=== PATIENT | female | born 1960 | race Two or more races ===

== ENCOUNTER → 2016-11-13 | Outpatient (CLI) | payer BC, OTHER ==
[~2016-11-13] MED LIST: ISOVUE-M 300 61% 15ML VIAL (Q9967) As Ordered ONE; LIDOCAINE 1% SDV INJ 30 ML VIAL As Ordered ONE; diazePAM 5 MG TAB As Ordered ONE; methylPREDNISolone SUSP 40 MG/ML (DEPO-medrol) VIAL (J1030) As Ordered ONE; oxyCODONE 5MG TAB As Ordered ONE
--- NOTE | 2016-11-13 18:39 | REP ---
FLUOROSCOPIC GUIDANCE FOR LUMBAR EPIDURAL INJECTION: 11/13/2016: Clinical history: Low back pain. Three images from C-arm fluoroscopy provided to Dr. Moss of the pain clinic. Findings. The first image shows a needle to the right of the spinous process of L5 just below the lamina. The second image shows epidural contrast adjacent to that needle tip and the third image show the needle removed. Fluoroscopy time: 45 seconds. Signed by Sandoval Gross MD 11/14/2016 08:31 A
--- NOTE | 2016-11-17 23:21 | ECWPNPC ---
PATIENT NAME: JAYLAN JONES : 1960 GENDER: FEMALE VISIT DATE: 11/13/2016 DISCHARGE DATE: 11/13/16 1139 VISIT LOCKED DATE TIME: PHYSICIAN: SAMMI FARAH RESOURCE: SAMMI FARAH REASON FOR APPOINTMENT 1. LESI L4,5-L5S1 HISTORY OF PRESENT ILLNESS HISTORY OF PRESENT ILLNESS: PAIN THE PATIENT DESCRIBES THE PAIN... FALL RISK SCREENING: SCREENING :NO FALLS IN THE PAST YEAR CURRENT MEDICATIONS TAKING FLUOXETINE HCL 40 MG CAPSULE 1 CAPSULE IN THE MORNING ORALLY ONCE A DAY, NOTES: 11/12/16 0800 TAKING HYDROCHLOROTHIAZIDE 12.5 MG TABLET 1 TABLET ORALLY ONCE A DAY, NOTES: 11/10/16 0800 TAKING OXYCODONE-ACETAMINOPHEN 5-325 MG TABLET 1 TABLET NEEDED ORALLY EVERY 6 HRS, NOTES: 11/13/16 0700 TAKING GABAPENTIN 100 MG CAPSULE ORALLY , NOTES: 11/13/16 0500 TAKING CLARITIN 10 MG TABLET 1 TABLET ORALLY ONCE A DAY, NOTES: > 2 WEEKS TAKING VITAMIN D 1000 UNIT TABLET 1 TABLET ORALLY ONCE A DAY, NOTES: 11/11/16 0800 TAKING CALCIUM + D3 600-200 MG-UNIT TABLET ORALLY , NOTES: 11/11/16 0800 MEDICATION LIST REVIEWED AND RECONCILED WITH THE PATIENT ALLERGIES PENICILLIN (FOR ALLERGIES USE ONLY) SULFA (FOR ALLERGY USE ONLY) SOCIAL HISTORY GENERAL: TOBACCO USE ARE YOU A:NONSMOKER LEARNING BARRIERS / SPECIAL NEEDS ORIENTED TO PLAN OF CARE: PATIENT, PAIN MANAGEMENT PATIENT, ORIENTED TO PLAN OF CARE: PATIENT, PAIN MANAGEMENT PATIENT. NEW PATIENT PAIN DIARY TODAY'S VISITNOTES FROM 0-10, WHAT LEVEL IS YOUR PAIN TODAY?0 PAIN CLINIC PFS, CLERGY, PUBLIC HEALTH REFERRALS PFS REFERRAL NEEDED?NO CLERGY REFERRAL NEEDED?NO PUBLIC HEALTH REFERRAL NEEDED?NO WAS THE PROVIDER NOTIFIED OF ANY PERTINENT INFO?NO PFS REFERRAL NEEDED?NO CLERGY REFERRAL NEEDED?NO PUBLIC HEALTH REFERRAL NEEDED?NO WAS THE PROVIDER NOTIFIED OF ANY PERTINENT INFO?NO REVIEW OF SYSTEMS CONSTITUTIONAL: ANY CHANGE IN YOUR MEDICAL CONDITION? NO . CHILLS NO . FEVER NO . INFECTION: DO YOU HAVE NEW INFECTIONS? NO . DO YOU HAVE HISTORY OF MRSA? NO . MUSCULOSKELETAL: ANY NEW PATTERNS OF PAIN OR NUMBNESS? NO . GASTROENTEROLOGY: ANY NEW CHANGE IN BOWEL CONTROL? NO . GENITOURINARY: ANY NEW CHANGE IN BLADDER CONTROL? NO . IS THERE A CHANCE YOU COULD BE ? NO . HEMATOLOGY/LYMPH: DO YOU TAKE ANY BLOOD THINNERS? (FOR EXAMPLE- COUMADIN, PLAVIX, AGGRENOX, PLATEL, PRADAXA, OR XARELTO) NO . WHEN WAS YOUR LAST DOSE? DATE: TIME: . NEUROLOGY: HAVE YOU FALLEN IN THE PAST 6 MONTHS? NO . ANY NEW EXTREMITY NUMBNESS OR WEAKNESS? NO . CARDIOLOGY: DO YOU HAVE A PACEMAKER OR DEFIBRILLATOR? NO . RESPIRATORY: HAVE YOU BEEN SICK IN THE PAST WEEK? NO . FEVER NO . FLU LIKE SYMPTOMS? NO . COUGH NO . INTEGUMENTARY: DO YOU HAVE ANY RASHES OR OPEN SORES? NO . ALLERGIC/IMMUNO: ARE YOU ALLERGIC TO SHELLFISH OR IV DYE? NO . ANY NEW ALLERGIES? NO . PSYCHIATRIC: DO YOU HAVE THOUGHTS OF HURTING YOURSELF OR SOMEONE ELSE? NO . ARE YOU ABUSED, NEGLECTED, OR IN AN UNSAFE ENVIRONMENT? NO . ENDOCRINOLOGY: ARE YOU DIABETIC? NO . OTHER: DO YOU NEED ANY PRESCRIPTIONS? NO . IF YES, PLEASE LIST: ____ . ANY NEW PROBLEMS WITH YOUR MEDICATIONS? NO . WHEN DID YOU LAST EAT? ____11/12/16 1700 . WHEN DID YOU LAST DRINK? ____11/13/16 0800 . WHAT DID YOU LAST DRINK? ____WATER . NAME OF PERSON DRIVING YOU HOME? ____AMARIS DOYLETISTA . DO YOU HAVE ANY OTHER QUESTIONS OR CONCERNS NO . REVIEWED BY: PROVIDER: . VITAL SIGNS WT 259 LBS, HT 65 IN, BMI 43.10 INDEX, BP 140/77 MM HG, HR 78 /MIN, RR 16 /MIN, TEMP 97.5 F, OXYGEN SAT % 96%, NA INITIALS SC 09:10, REVIEWED BY: SALVADOR. ASSESSMENTS INTERVERTEBRAL DISC DISORDERS WITH RADICULOPATHY, LUMBOSACRAL REGION - M51.17 (PRIMARY) PROCEDURES PRE PROCEDURE DIAGNOSIS LUMBOSACRAL RADICULOPATHY, LUMBOSACRAL DISC DISORDER WITH RADICULOPATHY POST PROCEDURE DIAGNOSIS LUMBOSACRAL RADICULOPATHY , LUMBOSACRAL DISC DISORDER WITH RADICULOPATHY PROCEDURE L5-S1 EPIDURAL STEROID INJECTION UNDER FLUOROSCOPIC GUIDANCE SURGEON DR. SAMMI FARAH NURSE INFORMATICIST NONE ANESTHESIA LOCAL PRE PROCEDURE NOTE THE PATIENT HAS A HISTORY OF CHRONIC LOW BACK PAIN. I EVALUATE THE PATIENT AND REVIEWED THE CHART. I WENT OVER THE RISKS, ALTERNATIVES, AND BENEFITS ASSOCIATED WITH THIS PROCEDURE. THE PATIENT WOULD LIKE TO PROCEED AND GIVE CONSENT TO PERFORMED THE PROCEDURE. THE PATIENT DENIES UNEXPLAINABLE WEIGHT LOSS, FEVER, CHILLS, OR NEW CHANGES IN URINARY OR BOWEL CONTROL. DESCRIPTION OF PROCEDURE THE PATIENT WAS BROUGHT TO THE PROCEDURE ROOM AND PLACED IN THE PRONE POSITION. THE LUMBOSACRAL AREA WAS CLEANED WITH BETADINE SOLUTION AND DRAPED ASEPTICALLY. THE PROCEDURE WAS DONE UNDER STERILE CONDITIONS. I CHECKED LATERALITY AND THE LEVEL WHERE THE PROCEDURE WAS GOING TO BE PERFORMED WITH THE PATIENT AND THE SUPPORTING STAFF AT THE MOMENT OF THE TIME OUT IN THE PROCEDURE ROOM. UNDER FLUOROSCOPIC GUIDANCE, THE TARGET POINT WAS SELECTED AT THE INTERLAMINAR LEVEL OF L5-S1. LIDOCAINE WAS USED TO NUMB THE SKIN AND THE SUBCUTANEOUS TISSUE BELOW IT. EPIDURAL TUOHY NEEDLE, 17-GAUGE, WAS ADVANCED UNDER FLUOROSCOPIC GUIDANCE AND FOLLOWING PATIENT FEEDBACK UNTIL THE EPIDURAL SPACE WAS REACHED, 7 CM DEEP INTO THE SKIN BY THE LOSS OF RESISTANCE TECHNIQUE. ISOVUE M DYE 30%, 0.25 ML, WAS INJECTED SHOWING ADEQUATE SPREAD OF THE DYE. THEN, A SOLUTION OF 3 ML OF NORMAL SALINE WITH DEPO-MEDROL 60 MG WAS INJECTED SLOWLY FOLLOWING PATIENT FEEDBACK. THERE WAS NO EVIDENCE OF BLOOD, PARESTHESIA OR CEREBROSPINAL FLUID DURING THE PROCEDURE. THE PATIENT WAS SENT TO THE RECOVERY ROOM. THE PATIENT WAS MOVING THE EXTREMITIES AND DOING WELL. THERE WAS NO COMPLICATION DURING THE PROCEDURE. FLUOROSCOPY TIME WAS 45 SECONDS. POST PROCEDURE NOTE THE PATIENT WILL BE SEEN IN A FOLLOW UP IN THE NEXT FEW WEEKS. INSTRUCTIONS WERE GIVEN, QUESTIONS WERE ANSWERED, AND THE PATIENT EXPRESSED UNDERSTANDING AND AGREES WITH THE PLAN. INSTRUCTIONS WERE GIVEN, QUESTIONS WERE ANSWERED, PATIENT REPORTS UNDERSTANDING AND AGREES WITH THE PLAN. I, JOE CASTANEDA, DOCUMENTED THE ABOVE INFORMATION ACTING A SCRIBE FOR DR. FARAH. I HAVE REVIEWED THE ABOVE DOCUMENT, WRITTEN BY JOE FUENTES AND I VERIFY THAT IT IS ACCURATE. DIAGNOSTIC IMAGING [facility] FLUORO GUIDE SPINE INJECTION (PAIN)[id number] PROCEDURE CODES 43962 LUMBAR/SACRAL W/ IMAGING 6045F RADXPS IN END [id number] PXD DISPOSITION & COMMUNICATION FOLLOW UP 3 WEEKS ELECTRONICALLY SIGNED BY SAMMI FARAH MD ON 11/17/2016 AT 09:19 PM EST DISCLAIMER : THIS IS A VISIT SUMMARY EXTRACTED FROM THE [employer] CHART. IT IS NOT A COPY OF THE [employer] PROGRESS NOTE. MTDD
== END ==
LOC: M PAIN 09:20
PROVIDERS: ATTEND Anesthesiology
DX: G89.29 Other chronic pain (principal); M51.17 Intervertebral disc disorders with radiculopathy, lumbosacral region; Z79.891 Long term (current) use of opiate analgesic; Z79.899 Other long term (current) drug therapy; Z88.0 Allergy status to penicillin; Z88.2 Allergy status to sulfonamides
CPT/HCPCS: 62323; J1030; Q9967

== ENCOUNTER → 2016-11-21 | Outpatient (CLI) | payer BC, OTHER ==
[~2016-11-21] MED LIST changes: +ALEV220T26 PO; +CALC500T51 PO; +CLAR10TA13 PO; +FLUO40CA PO; +GABA-279 PO; +HAIR1TAB5 PO; +HYDR12.55 PO; -ISOVUE-M 300 61% 15ML VIAL (Q9967) As Ordered ONE; -LIDOCAINE 1% SDV INJ 30 ML VIAL As Ordered ONE; +METH4PACK PO; +PEG1POW PO; +PERCOCET PO; +SENO8.6T10 PO; +TYLE325T5 PO; +VITA500055 PO; -diazePAM 5 MG TAB As Ordered ONE; -methylPREDNISolone SUSP 40 MG/ML (DEPO-medrol) VIAL (J1030) As Ordered ONE; -oxyCODONE 5MG TAB As Ordered ONE
--- NOTE | 2016-11-27 00:10 | ECWPNPC ---
PATIENT NAME: JAYLAN JONES : 1960 GENDER: FEMALE VISIT DATE: 11/21/2016 DISCHARGE DATE: 11/21/16 1234 VISIT LOCKED DATE TIME: PHYSICIAN: ALISHA WILL RESOURCE: ALISHA WILL REASON FOR APPOINTMENT 1. R HIP, R LEG HISTORY OF PRESENT ILLNESS GENERAL: HERE FOR POST PROCEDURE F/U.HAD LESI ON 11-13-16.REPORTS NO RELIEF AND SOME AGGREVATION IN PAIN .PAIN IS LOCATED ACROSS LOW BACK AND RADIATES INTO RIGHT LEG.FINDING IT DIFFICULT TO WALK.USING WALKER.WE CHANGED PAIN MEDICINE TO DILAUDID 4MG PERCOCET AND HYDROCODONE WERE INEFFECTIVE.DOES FEEL SOMA 350MG AT HS IS HELPFUL.FEELS DILAUDID IS EFFECTIVE AT REDUCING PAIN.DENIES SIDE EFFECTS.DENIES EPISODES OF BOWEL OR BLADDER INCONTINENCE.RATING PAIN VAS 9/10.HAS APT. TO SEE DR. CROUCH NEXT WEEK. HISTORY OF PRESENT ILLNESS: PAIN THE PATIENT DESCRIBES THE PAIN... FALL RISK SCREENING: SCREENING :NO FALLS IN THE PAST YEAR CURRENT MEDICATIONS TAKING FLUOXETINE HCL 40 MG CAPSULE 1 CAPSULE IN THE MORNING ORALLY ONCE A DAY TAKING HYDROCHLOROTHIAZIDE 12.5 MG TABLET 1 TABLET ORALLY ONCE A DAY TAKING OXYCODONE-ACETAMINOPHEN 5-325 MG TABLET 1 TABLET NEEDED ORALLY EVERY 6 HRS TAKING CLARITIN 10 MG TABLET 1 TABLET ORALLY ONCE A DAY TAKING VITAMIN D 1000 UNIT TABLET 1 TABLET ORALLY ONCE A DAY TAKING CALCIUM + D3 600-200 MG-UNIT TABLET ORALLY TAKING NORCO 10-325 MG TABLET 1 TABLET NEEDED ORALLY EVERY 6 HRS PRN MDD4 TAKING SOMA 350 MG TABLET 1 ORALLY BEFORE BEDTIME MDD1 TAKING DILAUDID 4 MG TABLET 1 ORALLY EVERY 6 HRS MDD4 TAKING GABAPENTIN 300 MG CAPSULE 1 CAPSULE ORALLY BID NOT-TAKING GABAPENTIN 300 MG CAPSULE ORALLY BID ALLERGIES PENICILLIN (FOR ALLERGIES USE ONLY) SULFA (FOR ALLERGY USE ONLY) SOCIAL HISTORY GENERAL: TOBACCO USE ARE YOU A:NONSMOKER LEARNING BARRIERS / SPECIAL NEEDS ORIENTED TO PLAN OF CARE: PATIENT, PAIN MANAGEMENT PATIENT, ORIENTED TO PLAN OF CARE: PATIENT, PAIN MANAGEMENT PATIENT. NEW PATIENT PAIN DIARY TODAY'S VISITNOTES FROM 0-10, WHAT LEVEL IS YOUR PAIN TODAY?0 PAIN CLINIC PFS, CLERGY, PUBLIC HEALTH REFERRALS PFS REFERRAL NEEDED?NO CLERGY REFERRAL NEEDED?NO PUBLIC HEALTH REFERRAL NEEDED?NO WAS THE PROVIDER NOTIFIED OF ANY PERTINENT INFO?NO PFS REFERRAL NEEDED?NO CLERGY REFERRAL NEEDED?NO PUBLIC HEALTH REFERRAL NEEDED?NO WAS THE PROVIDER NOTIFIED OF ANY PERTINENT INFO?NO REVIEW OF SYSTEMS CONSTITUTIONAL: ANY CHANGE IN YOUR MEDICAL CONDITION? NO . RECENT ILLNESS DENIES, DENIES . CHILLS NO . FEVER NO . WEIGHT LOSS DENIES, DENIES . INFECTION: DO YOU HAVE NEW INFECTIONS? NO . DO YOU HAVE HISTORY OF MRSA? NO . MUSCULOSKELETAL: ANY NEW PATTERNS OF PAIN OR NUMBNESS? NO . GASTROENTEROLOGY: ANY NEW CHANGE IN BOWEL CONTROL? NO . GENITOURINARY: ANY NEW CHANGE IN BLADDER CONTROL? NO . IS THERE A CHANCE YOU COULD BE ? NO . HEMATOLOGY/LYMPH: DO YOU TAKE ANY BLOOD THINNERS? (FOR EXAMPLE- COUMADIN, PLAVIX, AGGRENOX, PLATEL, PRADAXA, OR XARELTO) NO . WHEN WAS YOUR LAST DOSE? DATE: TIME: . NEUROLOGY: HAVE YOU FALLEN IN THE PAST 6 MONTHS? NO . ANY NEW EXTREMITY NUMBNESS OR WEAKNESS? NO . CARDIOLOGY: DO YOU HAVE A PACEMAKER OR DEFIBRILLATOR? NO . CHEST PAIN DENIES, DENIES . SHORTNESS OF BREATH DENIES, DENIES . RESPIRATORY: HAVE YOU BEEN SICK IN THE PAST WEEK? NO . FEVER NO . FLU LIKE SYMPTOMS? NO . COUGH NO, DENIES, DENIES . SHORTNESS OF BREATH DENIES, DENIES . INTEGUMENTARY: DO YOU HAVE ANY RASHES OR OPEN SORES? NO . ALLERGIC/IMMUNO: ARE YOU ALLERGIC TO SHELLFISH OR IV DYE? NO . ANY NEW ALLERGIES? NO . PSYCHIATRIC: DO YOU HAVE THOUGHTS OF HURTING YOURSELF OR SOMEONE ELSE? NO . ARE YOU ABUSED, NEGLECTED, OR IN AN UNSAFE ENVIRONMENT? NO . ENDOCRINOLOGY: ARE YOU DIABETIC? NO . OTHER: DO YOU NEED ANY PRESCRIPTIONS? NO . IF YES, PLEASE LIST: ____ . ANY NEW PROBLEMS WITH YOUR MEDICATIONS? NO . WHEN DID YOU LAST EAT? ____ . WHEN DID YOU LAST DRINK? ____ . WHAT DID YOU LAST DRINK? ____ . NAME OF PERSON DRIVING YOU HOME? ____ . DO YOU HAVE ANY OTHER QUESTIONS OR CONCERNS NO . REVIEWED BY: PROVIDER: ALISHA COOPER . VITAL SIGNS WT 263.8 LBS, HT 65 IN, BMI 43.89 INDEX, BP 140/90 MM HG, HR 74 /MIN, RR 16 /MIN, TEMP 98.3 F, OXYGEN SAT % 96%, NA INITIALS SC 11:27, REVIEWED BY: KG. EXAMINATION GENERAL EXAMINATION: LUNGS:LUNG SOUNDS ARE CLEAR. HEART:HEART RATE REGULAR. MUSCULOSKELETAL:*, MUSCLE STRENGTH TESTING 5/5 LEFT 3/5 RIGHT LOWER EXTREMITIES., PALPATION: POSITIVE FOR PAIN OVER L/S SPINE. POSITIVE FOR PAIN OVER L/S PARASPINALS R>L. DIAGNOSTIC:MRI L/S [id number].. ASSESSMENTS PROTRUDED LUMBAR DISC - M51.26 (PRIMARY) LUMBAR RADICULOPATHY, RIGHT - M54.16 CHRONIC PRESCRIPTION OPIATE USE - Z79.891 TREATMENT PROTRUDED LUMBAR DISC STOP OXYCODONE-ACETAMINOPHEN TABLET, 5-325 MG, 1 TABLET NEEDED, ORALLY, EVERY 6 HRS REFILL SOMA TABLET, 350 MG, 1, ORALLY, BEFORE BEDTIME MDD1, 10 DAY(S), 10, REFILLS 1 REFILL DILAUDID TABLET, 4 MG, 1, ORALLY, EVERY 6 HRS MDD4, 30 DAY(S), 20, REFILLS 0 REFILL GABAPENTIN CAPSULE, 300 MG, 1 CAPSULE, ORALLY, BID, 30 DAY(S), 60 CAPSULE, REFILLS 5 START CELEBREX CAPSULE, 200 MG, 1 CAPSULE, ORALLY, ONCE A DAY, 30 DAY(S), 30, REFILLS 2 NOTES: TAKE ACETAMINOPHEN 650MG 2 TAB AM AND PM. PROCEDURE CODES FA211 ESTABILISHED PATIENT [facility] CHARGE DISPOSITION & COMMUNICATION FOLLOW UP 4 WEEKS ELECTRONICALLY SIGNED BY ALLISON BROWN ON 11/26/2016 AT 05:11 PM EST DISCLAIMER : THIS IS A VISIT SUMMARY EXTRACTED FROM THE [employer] CHART. IT IS NOT A COPY OF THE [employer] PROGRESS NOTE. MTDD
== END ==
LOC: M PAIN 11:00
PROVIDERS: ATTEND Nurse Practitioner Family
DX: Z09 Encounter for follow-up examination after completed treatment for conditions other than malignant neoplasm (principal); G89.29 Other chronic pain; M51.26 Other intervertebral disc displacement, lumbar region; M51.17 Intervertebral disc disorders with radiculopathy, lumbosacral region; Z88.5 Allergy status to narcotic agent; Z88.2 Allergy status to sulfonamides; Z79.891 Long term (current) use of opiate analgesic; Z79.899 Other long term (current) drug therapy

== ENCOUNTER → 2016-12-03 | Outpatient (CLI) | payer BC, OTHER ==
--- NOTE | 2016-12-03 12:49 | REP ---
CERVICAL SPINE, TEN VIEWS: HISTORY: Spondylosis. The cervical spine is visualized from C1 to C6 in the lateral radiographs. There is no acute fracture or subluxation. The C5-6 and C6-7 intervertebral discs are decreased in height consistent with disc degeneration. There is narrowing of the C5 neural foramina secondary to uncinate process hypertrophy. IMPRESSION: Degenerative change as described above. Signed by Yemi Ordoñez MD 12/03/2016 12:49 P
== END ==
LOC: M RAD 11:16
PROVIDERS: ATTEND Neurological Surgery
DX: M47.812 Spondylosis without myelopathy or radiculopathy, cervical region (principal)

== ENCOUNTER 2016-12-13 06:08 | Inpatient (IN) | payer BC, OTHER ==
[~2016-12-13] VITALS: Ht 157.5 cm; Wt 116.6 kg
[2016-12-13] MEDS ORDERED: SOMA250T PO (06:48)
[2016-12-13] MEDS ORDERED: DILA4TAB PO (06:48)
[2016-12-13] MEDS ORDERED: KETOROLAC 30 MG/ML VIAL (J1885) IV ONE (07:30)
[2016-12-13] MEDS ORDERED: HYDROmorphone HCL 1 MG/ML SYRINGE (J1170) IV ONE (07:30)
[2016-12-13 08:01] LABS: BASO % 0.6 % (0.0-1.0); EOS # 0.1 K/mm3 (0.0-0.50); EOS % 2.4 % (0.0-3.0); LARGE UNSTAINED CELL # 0.1 K/mm3 (0.0-0.4); LARGE UNSTAINED CELL % 2.1 % (0.0-4.0); LYMPH # 1.5 K/mm3 (1.5-4.5); MEAN CORPUSCULAR HEMOGLOBIN 31.4 pg (27.0-33.0); MEAN CORPUSCULAR HGB CONC 33.4 g/dl (32.0-36.5); MEAN CORPUSCULAR VOLUME 94.1 fl (80.0-96.0); MONO # 0.3 K/mm3 (0.0-0.8); MONO % 5.7 % (0.0-5.0); NEUTROPHILS # 3.8 K/mm3 (1.8-7.7); NEUTROPHILS % 65.2 % (36.0-66.0); PLATELET COUNT, AUTOMATED 319 k/mm3 (150-450); RED CELL DISTRIBUTION WIDTH 13.2 % (11.5-14.5); WHITE BLOOD COUNT 5.8 K/mm3 (4.0-10.0)
[2016-12-13 08:12] LABS: ANION GAP 7 MEQ/L (8-16); BLOOD UREA NITROGEN 17 MG/DL (7-18); CALCIUM LEVEL 8.7 MG/DL (8.5-10.1); CARBON DIOXIDE LEVEL 28 MEQ/L (21-32); CHLORIDE LEVEL 104 MEQ/L (98-107); CREATININE FOR GFR 0.66 MG/DL (0.55-1.02); GLOMERULAR FILTRATION RATE > 60.0 (>51); GLUCOSE, FASTING 99 MG/DL (70-105); SODIUM LEVEL 139 MEQ/L (136-145)
[2016-12-13] MEDS: VITAMIN D 1,000 INTERNATIONAL UNITS TABLET PO SCH (09:00)
[2016-12-13] MEDS: GABAPENTIN 300 MG CAP PO SCH ×2 (09:00→20:54)
[2016-12-13] MEDS: HEPARIN SOD (PORCINE) 5000 UNITS/ML VIAL SQ SCH ×2 (09:00→20:53)
[2016-12-13] MEDS: SENOKOT S TAB PO SCH ×2 (09:00→20:54)
[2016-12-13] MEDS: hydroCHLOROthiazide 12.5 MG CAPSULE PO SCH ×2 (09:00→14:17)
[2016-12-13] MEDS: OCUVITE 1 TAB PO SCH (09:00)
[2016-12-13] MEDS: FLUoxetine 20 MG CAP PO SCH (09:00)
[2016-12-13 09:28] LABS: ERYTHROCYTE SEDIMENTATION RATE 22 mm/hr (0-30)
[2016-12-13] MEDS ORDERED: NEUR300C PO (11:31)
[2016-12-13] MEDS ORDERED: ACET650T2 PO (11:31)
[2016-12-13] MEDS ORDERED: CELE1CAP9 PO (11:31)
--- NOTE | 2016-12-13 12:55 | REP ---
MRI LUMBAR SPINE WITHOUT CONTRAST: 12/13/2016 COMPARISON: X-ray, CT and MR lumbar spine 11/09/2016. CLINICAL HISTORY: Back pain with radiation into right lower extremity. TECHNIQUE: Sagittal T1, T2 and STIR images with axial T1 and T2 sequences provided. The normal lordosis of the lumbar spine is maintained. Vertebral body heights and marrow signal are normal except for discogenic endplate changes most significant at the L2-L3. The disc levels from L1-2 through L4-5 show loss of height while maintaining disc height and water signal normally only at the L5-S1 level. No compression deformity or destructive lesions. There is a T11 hemangioma noted unchanged. The T11-12 and T12-L1 disc levels maintain height and water signal. The conus terminates at T12-L1. No central canal stenosis or foraminal encroachment at the T11-12 and T12-L1 levels. At L1-2, there is no significant disc bulge or herniation. No foraminal encroachment. At L2-L3, there is a broad-based disc bulge. In addition some increased epidural fat is noted as on previous study. This bulging minimally flattens ventral thecal sac but does not cause significant stenosis. Foramina are adequate with no L2 nerve root compression. At L3-L4, minimal disc bulge flattening ventral thecal sac. Epidural lipomatosis suggested. Hypertrophic facet changes are noted. The cross-sectional area of the canal is adequate. The foramina are ample with no L3 nerve root compression. At L4-5, there is a broad-based disc bulge. There is grade 1 anterolisthesis by about 5 to 6 mm grossly unchanged. Disc space is narrowed. The disc bulge flattens the ventral thecal sac. A right foraminal disc extrusion is seen as on previous studies. Hypertrophy of the ligamentum flavum and posterior facets noted with combined factors contributing to degree of moderate central canal stenosis. There is a fluid in the facet joints as on the previous study. The disc bulge with right extrusion, facet arthropathy and anterolisthesis combine to cause foraminal encroachment and some compression of bilateral L4 roots. All of this unchanged. At L5-S1, I see no disc bulge or herniation and no spinal or foraminal stenosis. Increased epidural fat is noted at this level. This may be contributing to mild compression of the thecal sac but no significant stenosis. This is all unchanged. Foramina intact. IMPRESSION: 1. Central canal stenosis, mild to moderate L4-5 secondary to disc bulge, ligamentous and facet hypertrophy, grade 1 spondylolisthesis. This causes nerve root compression bilaterally for the L4 roots. The small intraforaminal disc extrusion on the right side is again seen but not as well depicted due to technical factors. 2. Epidural lipomatosis at L2-3, L3-4 and L5-S1. It causes some mild thecal sac compression without significant stenosis. Foramina at these other levels are unremarkable. The discogenic endplate changes at L2-3 are unchanged. Stable exam. Signed by Sandoval Gross MD 12/13/2016 04:15 P
[2016-12-13] MEDS ORDERED: ONDANSETRON 4MG/2ML VIAL (J2405) IV PRN (13:30)
[2016-12-13] MEDS ORDERED: HYDROmorphone 2 MG TAB As Ordered ONE (13:59)
[2016-12-13] MEDS: HYDROmorphone (DILAUDID) 4 MG TAB PO PRN ×2 (14:04→20:54)
[2016-12-13 16:00] VITALS: BP 136/73
--- NOTE | 2016-12-13 16:27 | HPE ---
DATE OF ADMISSION: 12/13/2016 PRIMARY CARE PROVIDER: Bety Lopez, ELECTROMECHANICAL TECHNOLOGIST at Dr. Hsu's office. PAIN MANAGEMENT: Dr. Alicea NEUROSURGERY: Dr. Fernandes CHIEF COMPLAINT: Lower back pain and right lower extremity pain and weakness, unable to ambulate. HISTORY OF PRESENT ILLNESS: This is a 56-year-old female patient who lives alone at home with underlying medical history of hypertension, lumbosacral spondylosis following with Dr. Fernandes, chronic lower back pain radiating down right lower extremity, has been following with Dr. Fernandes. As per patient, since September 2016, patient's symptoms have been getting progressively worse, to the extent that she was having difficulty walking and unable to take care of herself. Patient lives alone. Her recently . Patient denies any recent trauma injury but today because she cannot get up and take care of herself, she subsequently called emergency medical services (EMS) who brought her to the hospital. The patient denies any fevers or chills. Denies any recent injury. She is morbidly obese. She has received cortisone injection in the past with no improvement and has been in the process of following with Dr. Pedersen for nerve conduction study later today and also Dr. Segovia for cardiology to optimize her for possible surgery. The patient presented to the emergency department (ED) with worsening pain, radiating down her right thigh with worsening numbness and tingling sensation. No bowel or urinary incontinence or symptoms. No nausea or vomiting. As per patient, numbness is predominantly on her lower extremity. No involvement of groin or peritoneal area. Numbness has been chronic. Pain medication was given in the ED and Dr. Fernandes was contacted by Dr. Covington. MRI was also done with no change from previous. As per Dr. Fernandes, there is no emergent need for surgery, recommend pain management followup, but surgery was offered to the patient but there is considerable risk with uncertain outcome or improvement. The patient denies any chest pain, pressure or discomfort. Denies any shortness of breath, fevers, or chills. ALLERGIES: Reported allergies to PENICILLIN, SULFA ANTIBIOTICS, and TETRACYCLINE. PAST MEDICAL HISTORY: 1. History of intractable back pain. 2. Hypertension. 3. Morbid obesity. 4. Lumbosacral spondylosis. 5. Bulging disc. PAST SURGICAL HISTORY: (C) section times two. FAMILY HISTORY: Noncontributory. SOCIAL HISTORY: Patient last drank alcohol on and rarely drinks alcoholic beverages. She does not smoke cigarettes or use illicit drugs. She lives at home. REVIEW OF SYSTEMS: 11-point review of systems is negative except for those mentioned in the history of present illness (HPI). HOME MEDICATIONS: - acetaminophen 650 mg by mouth every eight hours as needed - calcium with vitamin D two tablets by mouth daily - Soma by mouth at bedtime as needed - Celebrex 200 mg by mouth daily - vitamin D 10,000 units by mouth daily - Claritin one tablet by mouth daily as needed - fluoxetine 40 mg by mouth daily - gabapentin 300 mg by mouth twice a day - hydrochlorothiazide 12.5 mg by mouth daily - Dilaudid 4 mg by mouth every six hours as needed PHYSICAL EXAMINATION: VITAL SIGNS: Temperature 98, pulse 70, respirations 16, blood pressure 117/76, pulse oximetry 96% on room air. GENERAL: Patient alert and oriented times three, in no acute distress, morbidly obese. HEENT: Normocephalic, atraumatic. PULMONARY: Bilaterally clear to auscultation. CARDIAC: Distant heart sounds, regular, S1, S2. ABDOMEN: Soft, nontender. Positive bowel sounds. BACK: Symmetrical lower talkback host mildly to palpation. EXTREMITIES: Strength bilateral lower extremity equal and symmetrical. Sensation bilateral lower extremity intact. Patellar reflex bilaterally intact. LABORATORY DATA: WBC 5.8, hemoglobin and hematocrit 13.6/40.8, platelets 319. Chemistry: Sodium 139, potassium 4, chloride 104, bicarbonate 28, BUN 17, creatinine 0.66, C-reactive protein 0.39. MRI shows central canal stenosis moderate L5-6 secondary to bulging disc, ligamentous and facet hypertrophy, grade 1 spondylolisthesis. This causes nerve root compression bilaterally for the L4 roots and small intraforaminal disc protrusion on the right side is again seen but not as well depicted due to technical factors. Epidural lipomatosis at L2-3, L3-4, L5-S1 causes mild thecal sac compression without significant stenosis, foramina at these other levels are unremarkable. Endplate changes at L2-3 are present and unchanged. Stable examination. ASSESSMENT AND PLAN: This is a 56-year-old female patient with underlying medical history of morbid obesity, hypertension, depression, who presented with worsening lower back pain and right lower extremity weakness, unable to ambulate. 1. Worsening lower back pain and right lower extremity weakness, possibly secondary to central canal stenosis. MRI does not show any change. Case was discussed with Dr. Fernandes. Neurosurgery has been consulted. Pain management was also consulted. Pain regimen was prescribed. We will seek pain management's assistance for possible cortisone injection. As per Dr. Fernandes, neurologic checks, followup the patient for bladder volumes, physical therapy, bowel regimen as ordered. 2. Hypertension. Continue home medication. Monitor blood pressure. 3. Depression. Continue home medication. 4. Deep vein thrombosis (DVT) prophylaxis. Heparin subcutaneous. DISPOSITION PLANNING: Pending physical therapy, clinical improvement, consultation from pain management and neurosurgery.
[2016-12-13] MEDS: ACETAMINOPHEN 650MG ER TAB (TYLENOL ARTHRITIS) PO PRN (17:38)
[2016-12-13 22:00] VITALS: BP 152/83
[2016-12-14] MEDS: HYDROmorphone (DILAUDID) 4 MG TAB PO PRN ×4 (00:29→21:48)
[2016-12-14] MEDS ORDERED: CARISOPRODOL 350 MG TAB PO ONE (01:42)
[2016-12-14] MEDS: ACETAMINOPHEN 650MG ER TAB (TYLENOL ARTHRITIS) PO PRN ×3 (04:30→19:38)
[2016-12-14 06:00] VITALS: BP 126/71
[2016-12-14 07:17] LABS: MEAN CORPUSCULAR HEMOGLOBIN 31.3 pg (27.0-33.0); MEAN CORPUSCULAR VOLUME 94.7 fl (80.0-96.0); RED CELL DISTRIBUTION WIDTH 13.1 % (11.5-14.5); WHITE BLOOD COUNT 5.4 K/mm3 (4.0-10.0)
[2016-12-14 07:36] LABS: ANION GAP 9 MEQ/L (8-16); BLOOD UREA NITROGEN 13 MG/DL (7-18); CALCIUM LEVEL 8.6 MG/DL (8.5-10.1); CARBON DIOXIDE LEVEL 25 MEQ/L (21-32); CHLORIDE LEVEL 106 MEQ/L (98-107); CREATININE FOR GFR 0.58 MG/DL (0.55-1.02); GLOMERULAR FILTRATION RATE > 60.0 (>51); GLUCOSE, FASTING 93 MG/DL (70-105); MAGNESIUM LEVEL 2.4 MG/DL (1.8-2.4); POTASSIUM SERUM 4.1 MEQ/L (3.5-5.1); SODIUM LEVEL 140 MEQ/L (136-145)
[2016-12-14] MEDS: HEPARIN SOD (PORCINE) 5000 UNITS/ML VIAL SQ SCH ×2 (09:14→19:39)
[2016-12-14] MEDS: FLUoxetine 20 MG CAP PO SCH (09:15)
[2016-12-14] MEDS: OCUVITE 1 TAB PO SCH (09:15)
[2016-12-14] MEDS: VITAMIN D 1,000 INTERNATIONAL UNITS TABLET PO SCH (09:15)
[2016-12-14] MEDS: hydroCHLOROthiazide 12.5 MG CAPSULE PO SCH (09:16)
[2016-12-14] MEDS: SENOKOT S TAB PO SCH ×2 (09:16→19:38)
[2016-12-14] MEDS: GABAPENTIN 300 MG CAP PO SCH ×2 (09:16→19:38)
--- NOTE | 2016-12-14 15:33 | IPN ---
DATE: 12/14/2016 Patient seen and examined. No acute events overnight. Denies any fevers, chills, chest pain, pressure, or discomfort. Continues to report back pain radiating down right lower extremity. VITAL SIGNS: Temperature 98, pulse 70, respirations 14, blood pressure 126/71, pulse oximetry 99% on room air. LABORATORY DATA: WBC 5.4, hemoglobin and hematocrit 12.6/38.1, platelets 284. Chemistry: Sodium 140, potassium 4.1, chloride 106, bicarbonate 25, BUN 13, creatinine 0.58. PHYSICAL EXAMINATION: GENERAL: Patient alert and oriented times three, morbidly obese in no acute distress. HEENT: Normocephalic, atraumatic. PULMONARY: Bilaterally clear to auscultation. CARDIAC: Distant heart sounds, regular, S1, S2. ABDOMEN: Soft, nontender, nondistended. Positive bowel sounds. BACK: Symmetrical bilateral lower back pain. Mildly tender to palpation. EXTREMITIES: Strength bilateral lower extremities equal and symmetrical. Sensation in bilateral lower extremities intact. Patellar reflex bilaterally symmetrical. ASSESSMENT AND PLAN: This is a 56-year-old female patient with underlying medical history of morbid obesity, hypertension, depression, who presented with worsening lower back pain and right lower extremity weakness, unable to ambulate. 1. Worsening lower back pain with right lower extremity weakness, possibly secondary to central canal stenosis. MRI shows no significant change. Case discussed with Dr. Fernandes, neurosurgery. Has been consulted. Pain management has also been consulted. Pain regimen as per pain management. Will recommend cortisone injection, but stated that has not worked for her last time. Case discussed with Dr. Fernandes. Significant risk to surgical options. Success rate is one out of three with significant risks, including infection, worsening pain, bleeding, nerve damage, paralysis, but patient still wanted to go forward with surgery, given that she stated that her quality of life is terrible in this state, and even one out of three chance is good enough for her. Cardiology, Dr. Segovia, has been consulted for cardiac optimization. Patient's baseline metabolic equivalents (METS) greater than 4. Prior to the back pain onset more than 3 or 4 months ago, patient was able to ambulate 2 miles and has no cardiac history and risk factors other than the obesity. Patient has been optimized from cardiac perspective as per Dr. Segovia. EKG is appreciated. Neurologic checks, bladder volume, bladder scans, physical therapy, bowel regimen as ordered. 2. Hypertension. Continue home medication. 3. Depression. Continue home medications. 4. Deep vein thrombosis (DVT) prophylaxis. Heparin subcutaneous. DISPOSITION PLANNING: Pending physical therapy, clinical improvement, pain management. Possible surgery on Saturday if patient does not improve.
--- NOTE | 2016-12-14 18:34 | ECGEPIP ---
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
--- NOTE | 2016-12-14 18:35 | CR.PDOC ---
[facility] Consultation General Date of Consultation: 12/14/16 Consultation Report For: TEJAL CHAHAL MD Chief Complaint The patient is a 56-year-old female admitted with a reason for visit of Intractable Low Back Pain. Pain management is asked to see the patient for further evaluation of her pain. She is a current patient of our practice. History of Present Illness Linh Garcia is a 56-year-old female who is usually followed by ALLISON Worthington , and Dr. Severiano Alicea. She had been experiencing pain in the low back with radiation into the right leg. She was brought in for interventional treatment and did undergo a lumbar epidural steroid injection on 11/13/2016. She returned to the clinic on 11/17/2016 due to marked increase in pain in the right leg low back. She did not have any relief following the injection. Today she tells me that it feels as though the injection was in the right area, but the area became extremely agitated. At the time of her visit. She was started on hydromorphone 4 mg every 6 hours as needed and continued on gabapentin. She did come to the emergency room on 12/13/2016 with increased difficulty with walking as well as pain in the low back with radiation to the right leg. In the emergency room she was given IV hydromorphone, which did provide her with some relief. Since since being admitted to the floor. She has received oral hydromorphone, which she has not felt as effective area. She is noting that the hydromorphone plus extra strength Tylenol does seem to be helpful. Today she was seen by Dr. Fernandes and surgical intervention is planned for Saturday. 2016. Home Medications Scheduled (Hair Skin and Nails Formu) 1 Tab Tab 1 TAB PO DAILY (Reported) (Celecoxib) 200 Mg Cap 200 MG PO DAILY (Reported) Calcium/Vitamin D (Calcium 500+D 500-200 mg-Unit) 1 Tab Tab 2 TAB PO DAILY ( Reported) Cholecalciferol (Vitamin D3) 5,000 Unit Tab 10,000 UNIT PO DAILY (Reported) Fluoxetine Hcl (Fluoxetine HCl) 40 Mg Cap 40 MG PO DAILY (Reported) Gabapentin (Neurontin) 300 Mg Cap 300 MG PO BID (Reported) Hydrochlorothiazide (Hydrochlorothiazide) 12.5 Mg Tab 12.5 MG PO DAILY ( Reported) Scheduled PRN (Claritin-D 24 Hour 10-240 mg) 1 Tab Tab 1 TAB PO DAILY PRN PRN ALLEGIES ( Reported) Acetaminophen (Acetaminophen ER) 650 Mg Tab 650 MG PO Q8H PRN PRN PAIN (Reported ) Carisoprodol (Soma) 250 Mg Tab 250 MG PO QHS PRN PRN BACK PAIN (Reported) Hydromorphone HCl (Dilaudid) 4 Mg Tab 4 MG PO Q6H PRN PRN BACK PAIN (Reported) Allergies Coded Allergies: Penicillins (Unverified Allergy, Intermediate, HIVES, 12/03/16) Sulfa Antibiotics (Unverified Allergy, Intermediate, HIVES, 12/03/16) Tetracycline (Unverified Allergy, Intermediate, HIVES, 12/03/16) Past Medical History Medical History Past medical history includes hypertension and obesity Surgical History Denies use of tobacco, alcohol or illicit substances. She is a . She works full-time at [employer] for over 30 years. She has been unable to work recently due to her back pain Family History Family History Noncontributory Social History Social History Denies tobacco, alcohol, or illicit substance abuse. Review of Systems Subjective Constitutional: Reports: fatigue, nausea with pain, Denies: unexplained weight loss HEENT: Denies: head aches, hearing problems, vision problems Skin: Denies: breakdown, lesions, rash Pulmonary: Denies: cough, dyspnea Cardiovascular: Denies: chest pain, edema, palpitations Gastrointestinal: Reports: constipation, Denies: loss of bowel control Genitourinary: Denies: dysuria, hematuria, loss of bladder control Hematologic: Denies: blood dyscrasias, easy bleeding, easy bruising Endocrine: Denies: Diabetes mellitus Musculoskeletal: Reports: leg pain (right side), muscle stiffness, spasms Neurological: Reports: other (numbness, burning and tingling along the lateral right leg and across the foot.) Psych: Reports: mood normal, Denies: thoughts of harming other, thoughts of self harm Physical Examination Physical Examination Vital Signs/I&O Vital Signs Date Time Temp Pulse Resp B/P Pulse Ox O2 Delivery O2 Flow Rate FiO2 12/14/16 16:14 16 12/14/16 09:21 Room Air 12/14/16 06:00 98.0 70 126/71 99 I&O- Last 24 Hours up to 6 AM 12/14/16 06:00 Intake Total 180 ml Output Total 1600 ml Balance -1420 ml General Exam: Positive: alert, attentive, moderate distress, oriented times three, talkative ENT EXAM: Positive: normocephalic Neck Exam: Positive: Carotid bruit (none), Negative: Lymphadenopathy, Thyromegaly Chest Exam: Positive: Clear to auscultation, Negative: Rales, Wheezing Heart Exam: Positive: Normal S1, S2, Regular rate and rhythm, Negative: Murmurs, Rubs Abdominal Exam: Positive: Nondistended, Normal bowel sounds, Soft Extremity Exam: Negative: Edema Skin Exam: Positive: Dry, Warm, Negative: Lesions, Rashes Neuro Exam: Positive: Gait is antalgic, Muscle Strength U/L Ext. (4+ over 5, right lower extremity distally and proximally, 5 over 5 distally and proximally in the left lower extremity. Some weakness is noted with foot flexion right side.), Normal Tone Inspection of spine Point tenderness noted over lumbar spinous processes and particularly over the right sacrum and right sacroiliac joint. Tenderness is also elicited with palpation over the right. Formless. Is unable to sit in a full upright position. Posture is held stiffly. Able to flex to 20-30 only. Currently, Walker is being used for balance and support. Diagnostic and Imaging Studies MRI of lumbar spine was completed on 12/13/2016. These were compared to her x- rays, CT and MRI of the lumbar spine completed on 11/09/2016. This did demonstrate central canal stenosis, mild to moderate at L4-5 secondary to disc bulge ligamentous and facet hypertrophy and grade 1 spondylolisthesis. This causes nerve root compression bilaterally for the L4 roots. There is a small intraforaminal disc extrusion on the right side again seen, but not as well depicted due to technical factors. This is unchanged since her previous imaging. There is epidural lipomatosis at L2-3, L3-4 and L5-S1. It causes some mild thecal sac compression, but without significant stenosis. The foramina at these other levels are felt to be unremarkable. The discogenic endplate changes at L2-3. We are unchanged. Assessment 1. Lumbar disc displacement without myelopathy. 2. Lumbar radiculopathy. 3. Lumbar facet arthropathy Recommendation and Plan At this time. Patient is tentatively scheduled for a decompressive laminectomy with Dr. Fernandes on 12/17/2016. There had been some thought given to moving ahead with a epidural injection. Dr. Alicea was out of the office this week, and Saturday. Patient does not feel that the epidural that she had one month ago was of any benefit and she is anxious to move forward with a surgical intervention. I did recommend that she follow Dr. Fernandes's instructions as far as ambulation. Would recommend that she continue with the same medications although I will reevaluate her gabapentin and add a laxative. Thank you , for allowing us to participate in the care of your patient, Linh Garcia. We will look to see her back in the office following her surgical intervention should there be a need. Should you have any questions we'll be glad to discuss this with you at any time please contact us here at the pain center at [phone]. Maura Bronson TORCH CUTTER Dec 14, 2016 18:35
[2016-12-14] MEDS: CARISOPRODOL 350 MG TAB PO SCH (19:38)
--- NOTE | 2016-12-14 20:18 | CR ---
DATE OF CONSULTATION: 12/14/2016 REFERRING PHYSICIAN: Dr. Dutton and Dr. Fernandes INDICATION: Preoperative clearance. HISTORY OF PRESENT ILLNESS: Mrs. Dos Santos is previously unknown to me. She is a very pleasant 56-year-old female who was admitted to the hospital on 12/13/2016 with intractable low back pain. Apparently there is a suspicion for spinal stenosis with some compressive symptoms and consideration for neurosurgical intervention. I was asked to provide cardiology clearance. The patient does not have any cardiac history. She tells me that she was quite active until September of this year. 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 She tells me that every day she walks many miles and generally does not have any trouble doing so (with the exception of recent low back pain). She denies any history of chest pain or shortness of breath. She has had chronic lower extremity dependent edema on the days when she works because she would be of her feet for 8 hours with virtually no sitting in between. The symptoms would always resolve by the morning. She denies any history of smoking. Even though the diagnosis of hypertension is listed, she tells me she never actually had high blood pressure and she takes the diuretics to help her lower extremity edema. She does not know her lipid panel, but to the best of her understanding, it was never known to be high. PAST MEDICAL HISTORY: 1. Low back pain. 2. Obesity, morbid. 3. Lumbosacral spondylosis. 4. Questionable history of hypertension. 5. Chronic venous insufficiency with lower extremity edema. SURGICAL HISTORY: section times two. FAMILY HISTORY: Her father of coronary artery disease, but he was a heavy smoker. SOCIAL HISTORY: The patient is a . Her of massive coronary artery disease a few months ago. She does not drink. She does not smoke and never did. ALLERGIES: PENICILLIN, SULFA and TETRACYCLINE. OUTPATIENT MEDICATIONS: - Tylenol as needed - calcium with vitamin D - Soma as needed - Celebrex 200 mg a day - vitamin D 10,000 units a day - Claritin - fluoxetine 40 mg a day - gabapentin 300 mg twice a day - HCTZ 12.5 mg a day - Dilaudid as needed every 6 hours PHYSICAL EXAMINATION: Mrs. Garcia is a pleasant middle-aged female who appears to be in mild distress when moving but comfortable when she lays still. Blood pressure 126/71, heart rate 70s. She is afebrile. Saturation 99% on room air. She is obese. Her weight was documented at 116 kg. Jugular venous pressure (JVP) is not elevated. No goiter. No cervical lymphadenopathy. No carotid bruit. Lungs are clear to auscultation. Heart exam reveals nondisplaced precordial impulse. Heart sounds are somewhat muffled but nevertheless, I do not appreciate any gallop, rub or murmur. Abdomen is is obese but soft, nontender. No guarding. No peripheral edema. Peripheral pulses are good quality. Neurologically, she freely moves all four extremities. I did not formally test her gait or deep tendon reflexes. LABORATORY: She has normal CBC and normal basic metabolic panel. ECG reveals sinus rhythm with poor R-wave progression and nonspecific ST-T abnormalities. ASSESSMENT AND PLAN: Mrs. Garcia is a 56-year-old female who presented with intractable low back pain and apparently lower back surgery is considered for Saturday. She does not have congestive heart failure and does not have established coronary artery disease. She does not have any anginal symptoms and was quite active until September of this year with reported good exertional tolerance. Her risk factors for coronary artery disease are positive for family history, obesity and possibly lipids (her lipid panel is unknown). I do not see any high-risk indicator to preclude surgery. I believe that her cardiac risk is actually pretty low. The principal risk is the risk of deep vein thrombosis (DVT). I think that currently she should be on DVT prophylaxis with Lovenox or heparin and it should be discontinued just before the surgery with non-pharmacologic DVT prophylactic measures to be applied afterwards. I do not believe that any further cardiac testing or precautions are necessary. CHARLEEN
[2016-12-14 22:00] VITALS: BP 135/64
[2016-12-15] MEDS: ACETAMINOPHEN 650MG ER TAB (TYLENOL ARTHRITIS) PO PRN ×2 (05:17→17:32)
[2016-12-15] MEDS: HYDROmorphone (DILAUDID) 4 MG TAB PO PRN ×3 (05:18→20:11)
[2016-12-15 06:00] VITALS: BP 113/72
[2016-12-15 06:55] LABS: MEAN CORPUSCULAR HEMOGLOBIN 31.3 pg (27.0-33.0); MEAN CORPUSCULAR HGB CONC 33.1 g/dl (32.0-36.5); MEAN CORPUSCULAR VOLUME 94.7 fl (80.0-96.0); RED CELL DISTRIBUTION WIDTH 13.1 % (11.5-14.5)
[2016-12-15 07:12] LABS: ANION GAP 8 MEQ/L (8-16); BLOOD UREA NITROGEN 13 MG/DL (7-18); CALCIUM LEVEL 8.5 MG/DL (8.5-10.1); CARBON DIOXIDE LEVEL 29 MEQ/L (21-32); CHLORIDE LEVEL 104 MEQ/L (98-107); CREATININE FOR GFR 0.69 MG/DL (0.55-1.02); GLOMERULAR FILTRATION RATE > 60.0 (>51); GLUCOSE, FASTING 101 MG/DL (70-105); MAGNESIUM LEVEL 2.3 MG/DL (1.8-2.4); POTASSIUM SERUM 3.8 MEQ/L (3.5-5.1); SODIUM LEVEL 141 MEQ/L (136-145)
[2016-12-15] MEDS: OCUVITE 1 TAB PO SCH (07:56)
[2016-12-15] MEDS: HEPARIN SOD (PORCINE) 5000 UNITS/ML VIAL SQ SCH ×2 (07:56→21:55)
[2016-12-15] MEDS: GABAPENTIN 300 MG CAP PO SCH ×3 (07:57→21:54)
[2016-12-15] MEDS: FLUoxetine 20 MG CAP PO SCH (07:57)
[2016-12-15] MEDS: VITAMIN D 1,000 INTERNATIONAL UNITS TABLET PO SCH (07:58)
[2016-12-15] MEDS: SENOKOT S TAB PO SCH ×2 (07:58→21:54)
[2016-12-15] MEDS: MIRALAX *UNIT DOSE* 17GM PACKET PO SCH (09:00)
--- NOTE | 2016-12-15 13:44 | IPN ---
DATE: 12/15/2016 Patient seen and examined. No acute events overnight. Denies any fevers, chills, chest pain, pressure, or discomfort. Reported back pain to be slightly improved. VITAL SIGNS: Temperature 98.3, pulse 72, respirations 20, blood pressure 113/72, pulse oximetry 98% on room air. LABORATORY DATA: WBC 7, hemoglobin and hematocrit (H and H) 12.9/39.1, platelets 320. Chemistry: Sodium 141, potassium 3.8, chloride 104, bicarbonate 29, BUN 13, creatinine 0.69. PHYSICAL EXAMINATION: GENERAL: Patient morbidly obese, in no acute distress. HEENT: Normocephalic, atraumatic. PULMONARY: Bilaterally clear to auscultation. CARDIAC: Distant heart sounds. Regular rate and rhythm, normal S1, S2. ABDOMEN: Soft, nontender, nondistended. Positive bowel sounds. BACK: Symmetrical bilateral lower back pain. Mildly tender to palpation. EXTREMITIES: Strength bilateral lower extremities intact, equal and symmetrical. Sensation to bilateral lower extremities intact. Patellar reflex bilaterally symmetrical. ASSESSMENT AND PLAN: This is a 56-year-old female patient with underlying medical history of morbid obesity, hypertension and depression who presented with worsening lower back pain, right lower extremity weakness, unable to ambulate. 1. Worsening lower back pain with right lower extremity weakness, possibly secondary to central canal stenosis. MRI shows no significant change. The case discussed with Dr. Fernandes, neurosurgery who has been consulted. Pain management has been consulted. Patient had epidural injection previously. Did not tolerate it and did not improve. Subsequently the only alternative was surgical. Dr. Fernandes has discussed the risks and benefits of surgery with the patient, including bleeding, nerve damage, paralysis, infection, and as per Dr. Fernandes the success rate of the surgery of good outcome is 1 out of 3. Despite the above information, the patient still wanted to go forward with the surgery. She is aware of the risks and the benefits of the surgery, stating that her quality of life right now is terrible and she wants to take any chance possible to get better. Cardiology, Dr. Segovia, has been consulted and the patient has been optimized from a cardiac perspective. Baseline metabolic equivalents (METS) greater than 4 prior to pain. Bowel regimen is prescribed. Pain medications prescribed. Bladder volume, bladder scan and neurologic checks. Continue to follow. 2. Hypertension. Continue home medications. 3. Depression. Continue home medications. 4. Deep vein thrombosis (DVT) prophylaxis. Heparin subcutaneous. DISPOSITION PLANNING: Pending physical therapy, clinical improvement. Possible surgery on Saturday if patient does not improve.
[2016-12-15 14:00] VITALS: BP 132/71
[2016-12-15] MEDS: **NOTE PATIENT COMMENT** MISC XX SCH ×2 (16:00→21:00)
[2016-12-15] MEDS: CARISOPRODOL 350 MG TAB PO SCH (21:54)
[2016-12-15 22:00] VITALS: BP 132/78
[2016-12-16] MEDS: HYDROmorphone (DILAUDID) 4 MG TAB PO PRN ×3 (05:17→20:49)
[2016-12-16] MEDS: ACETAMINOPHEN 650MG ER TAB (TYLENOL ARTHRITIS) PO PRN ×2 (05:51→17:10)
[2016-12-16 06:00] VITALS: BP 167/81
[2016-12-16 06:34] LABS: MEAN CORPUSCULAR HEMOGLOBIN 31.7 pg (27.0-33.0); MEAN CORPUSCULAR HGB CONC 33.1 g/dl (32.0-36.5); MEAN CORPUSCULAR VOLUME 95.9 fl (80.0-96.0); RED CELL DISTRIBUTION WIDTH 13.3 % (11.5-14.5); WHITE BLOOD COUNT 5.8 K/mm3 (4.0-10.0)
[2016-12-16 06:41] LABS: ANION GAP 7 MEQ/L (8-16); BLOOD UREA NITROGEN 11 MG/DL (7-18); CALCIUM LEVEL 8.7 MG/DL (8.5-10.1); CARBON DIOXIDE LEVEL 28 MEQ/L (21-32); CHLORIDE LEVEL 105 MEQ/L (98-107); CREATININE FOR GFR 0.68 MG/DL (0.55-1.02); GLOMERULAR FILTRATION RATE > 60.0 (>51); GLUCOSE, FASTING 104 MG/DL (70-105); MAGNESIUM LEVEL 2.3 MG/DL (1.8-2.4); POTASSIUM SERUM 3.7 MEQ/L (3.5-5.1); SODIUM LEVEL 140 MEQ/L (136-145)
[2016-12-16] MEDS: HEPARIN SOD (PORCINE) 5000 UNITS/ML VIAL SQ SCH ×3 (08:44→20:55)
[2016-12-16] MEDS: MIRALAX *UNIT DOSE* 17GM PACKET PO SCH (08:45)
[2016-12-16] MEDS: hydroCHLOROthiazide 12.5 MG CAPSULE PO SCH (08:45)
[2016-12-16] MEDS: VITAMIN D 1,000 INTERNATIONAL UNITS TABLET PO SCH (08:45)
[2016-12-16] MEDS: FLUoxetine 20 MG CAP PO SCH (08:45)
[2016-12-16] MEDS: GABAPENTIN 300 MG CAP PO SCH ×3 (08:45→20:49)
[2016-12-16] MEDS: OCUVITE 1 TAB PO SCH (08:45)
[2016-12-16] MEDS: SENOKOT S TAB PO SCH ×2 (08:46→20:49)
[2016-12-16] MEDS: **NOTE PATIENT COMMENT** MISC XX SCH ×3 (08:46→20:49)
--- NOTE | 2016-12-16 10:01 | IPN ---
DATE: 12/16/2016 Patient seen and examined. No acute events overnight. Reported back pain to be about the same as yesterday. Mildly improved after pain medication, about 3 out of 10 at this point. Denies any chest pain, pressure, or discomfort, fevers or chills. VITAL SIGNS: Temperature 98.2, pulse 74, respirations 18, blood pressure 167/81, pulse oximetry 98% on room air. LABORATORY DATA: WBC 5.8, hemoglobin and hematocrit 13.2/39.8, platelets 319. Chemistry: Sodium 140, potassium 3.7, chloride 105, bicarbonate 28, BUN 11, creatinine 0.68. PHYSICAL EXAMINATION: GENERAL: Patient morbidly obese, in no acute distress. HEENT: Normocephalic, atraumatic. PULMONARY: Bilaterally clear to auscultation. CARDIAC: Distant heart sounds. Regular rate and rhythm, normal S1 and S2. ABDOMEN: Soft, nontender, nondistended. Positive bowel sounds. BACK: Symmetrical bilateral mild low back tenderness to palpation. EXTREMITIES: Bilateral lower extremities strength intact. ASSESSMENT AND PLAN: This is a 56-year-old female patient with underlying medical history of morbid obesity, hypertension and depression who presented with worsening lower back pain, right lower extremity weakness and unable to ambulate. 1. Worsening lower back pain with right lower extremity weakness, possibly secondary to central canal stenosis. MRI shows no significant change. The case discussed with Dr. Fernandes, neurosurgery who has been consulted. Pain management has been consulted. Patient had epidural injection previously with no improvement in significant pain. Subsequently the only alternative was surgery. Dr. Fernandes has discussed the risks and benefits of surgery with the patient, including bleeding, nerve damage, paralysis, infection, and more, and the success rate of the surgery of good outcome is only 1 out of 3. Despite the above information, the patient still wanted to proceed with surgery. She stated that she was aware of the risks and the benefits of the surgery. She stated that her quality of life right now is terrible and she wants to take any chance possible to get better. Cardiology, Dr. Segovia, has been consulted. The patient was optimized for surgery from a cardiac perspective. The patient's baseline METS greater than 4 prior to the pain. Therefore, the patient is medically optimized. Bowel regimen prescribed. Pain management medication was prescribed. Bladder volume, neuro checks. Likely going for surgery on Saturday morning. 2. Hypertension. Continue home medications. 3. Depression. Continue home medications. 4. Deep vein thrombosis (DVT) prophylaxis. Heparin subcutaneous. DISPOSITION PLANNING: Physical therapy, clinical improvement. Likely going for surgery with Dr. Fernandes on Saturday.
[2016-12-16 14:00] VITALS: BP 151/90
--- NOTE | 2016-12-16 14:18 | REP ---
Chest x-ray: Two views. History: Preop. No comparison studies. Findings: There is a dextroconvex rotoscoliotic curve in the thoracic spine. The lungs are well inflated and clear. The pleural angles are sharp. Heart size is normal. There are degenerative changes as well in the thoracic spine and in the AC joints. Impression: Dextroconvex thoracic rotoscoliotic curve. Otherwise no active disease. Signed by Johnnie Lara MD 12/16/2016 05:11 P
[2016-12-16] MEDS ORDERED: KCL 20MEQ IN D5/0.2%NS 1000ML 1,000 ML IV SCH (15:00)
--- NOTE | 2016-12-16 15:04 | REP ---
Duplex extremity venous ultrasound: Bilateral lower extremities. History: Calf pain and tenderness. Immobilization. Findings: The deep veins are anechoic and fully compressible from the groin to the popliteal fossa in the right and left lower extremity. Color flow imaging is homogeneous. Spectral Doppler interrogation demonstrates intact respiratory variation in flow and normal manual augmentation of flow. There is no evidence of deep vein thrombosis. There are normal appearing lymph nodes in each groin which appear fat replaced. The largest of these on the right measures 3.4 x 1.0 x 1.3 cm. On the left the largest node measures 1.3 x 0.7 x 0.9 cm. Impression: Negative bilateral lower extremity duplex venous ultrasound. No evidence of deep vein thrombosis. Signed by Johnnie Lara MD 12/16/2016 05:11 P
[2016-12-16] MEDS: CARISOPRODOL 350 MG TAB PO SCH (20:49)
[2016-12-16 22:00] VITALS: BP 137/86
[2016-12-17] VITALS (7 sets, daily range): BP systolic 115–137; BP diastolic 64–86
[2016-12-17] MEDS ORDERED: KCL 20MEQ IN D5/0.2%NS 1000ML 1,000 ML IV SCH
[2016-12-17] MEDS: HYDROmorphone (DILAUDID) 4 MG TAB PO PRN (03:11)
[2016-12-17 06:42] LABS: BASO % 0.7 % (0.0-1.0); EOS # 0.2 K/mm3 (0.0-0.50); EOS % 3.2 % (0.0-3.0); LARGE UNSTAINED CELL # 0.1 K/mm3 (0.0-0.4); LARGE UNSTAINED CELL % 2.6 % (0.0-4.0); LYMPH # 1.6 K/mm3 (1.5-4.5); LYMPH % 30.5 % (24.0-44.0); MEAN CORPUSCULAR HEMOGLOBIN 30.9 pg (27.0-33.0); MEAN CORPUSCULAR HGB CONC 32.8 g/dl (32.0-36.5); MEAN CORPUSCULAR VOLUME 94.1 fl (80.0-96.0); MONO # 0.4 K/mm3 (0.0-0.8); MONO % 7.2 % (0.0-5.0); NEUTROPHILS # 2.9 K/mm3 (1.8-7.7); NEUTROPHILS % 55.9 % (36.0-66.0); PLATELET COUNT, AUTOMATED 298 k/mm3 (150-450); WHITE BLOOD COUNT 5.2 K/mm3 (4.0-10.0)
[2016-12-17 06:47] LABS: INR 1.08
[2016-12-17 07:00] LABS: ANION GAP 6 MEQ/L (8-16); BLOOD UREA NITROGEN 10 MG/DL (7-18); CALCIUM LEVEL 8.7 MG/DL (8.5-10.1); CARBON DIOXIDE LEVEL 28 MEQ/L (21-32); CHLORIDE LEVEL 105 MEQ/L (98-107); CREATININE FOR GFR 0.64 MG/DL (0.55-1.02); GLOMERULAR FILTRATION RATE > 60.0 (>51); GLUCOSE, FASTING 99 MG/DL (70-105); MAGNESIUM LEVEL 2.2 MG/DL (1.8-2.4); SODIUM LEVEL 139 MEQ/L (136-145)
[2016-12-17] MEDS ORDERED: CLINDAMYCIN 900 MG in APPROPRIATE DILUENT 1 EA IV ONE (07:00)
[2016-12-17] MEDS ORDERED: BACITRACIN PWD 50,000 UNITS VIAL As Ordered ONE (08:23)
[2016-12-17] MEDS ORDERED: methylPREDNISolone SUSP 40 MG/ML (DEPO-medrol) VIAL (J1030) As Ordered ONE (08:23)
[2016-12-17] MEDS ORDERED: THROMBIN SOLN 20,000 UNITS KIT As Ordered ONE (08:23)
[2016-12-17] MEDS ORDERED: CLINDAMYCIN 900 MG/50 ML PREMIX BAG As Ordered ONE (08:49)
[2016-12-17] MEDS ORDERED: MIDAZOLAM INJ 2 MG/2 ML VIAL (J2250) As Ordered ONE (09:11)
[2016-12-17] MEDS ORDERED: PROPOFOL 200 MG/20 ML VIAL As Ordered ONE (09:11)
[2016-12-17] MEDS ORDERED: ROCURONIUM BROMIDE 50 MG/5 ML VIAL As Ordered ONE (09:11)
[2016-12-17] MEDS ORDERED: METOCLOPRAMIDE INJ 10MG/2ML VIAL (J2765) As Ordered ONE (09:11)
[2016-12-17] MEDS ORDERED: DESFLURANE 240 ML INHALANT As Ordered ONE (09:11)
[2016-12-17] MEDS ORDERED: fentaNYL 250 MCG/5 ML INJECTION (J3010) As Ordered ONE (09:11)
[2016-12-17] MEDS ORDERED: PHENYLephrine HCL 500 MCG/5 ML (100MCG/ML) SYRINGE (J2370) As Ordered ONE (09:40)
[2016-12-17] MEDS ORDERED: NEOSTIGMINE 1MG/ML 5 ML SYRINGE (J2710) As Ordered ONE (09:52)
[2016-12-17] MEDS ORDERED: GLYCOPYRROLATE INJ 0.2 MG/ML 2 ML VIAL As Ordered ONE (09:52)
[2016-12-17] MEDS ORDERED: ONDANSETRON 4MG/2ML VIAL (J2405) As Ordered ONE (09:52)
--- NOTE | 2016-12-17 10:51 | REP ---
PARTIAL LUMBAR SPINE, ONE VIEW: HISTORY: Spondylolisthesis. A single portable lateral radiograph was obtained. A metal probe is present overlying the neural arch at the L4-5 level. Signed by Yemi Ordoñez MD 12/17/2016 02:54 P
[2016-12-17] MEDS ORDERED: HYDROmorphone HCL 2 MG/ML 1ML VIAL (J1170) As Ordered ONE (11:25)
[2016-12-17] MEDS ORDERED: CLINDAMYCIN 600 MG/50 ML PREMIX BAG As Ordered ONE (12:16)
[2016-12-17] MEDS ORDERED: HYDROmorphone HCL 1 MG/ML SYRINGE (J1170) As Ordered ONE ×2 (13:26→13:46)
[2016-12-17] MEDS: HYDROmorphone HCL 1 MG/ML SYRINGE (J1170) IV PRN ×5 (13:29→14:05)
[2016-12-17] MEDS ORDERED: NORCO, ANEXSIA 5/325MG TABLET (HYDROcodone/ACETAMINOPHEN) PO PRN (13:45)
[2016-12-17] MEDS ORDERED: NALBUPHINE HCL 10 MG/ML AMP (J2300) IV PRN ×2 (13:45)
[2016-12-17] MEDS ORDERED: MORPHINE 2 MG/ML 1ML SYRINGE IV PRN (13:45)
[2016-12-17] MEDS ORDERED: KCL 20MEQ IN D5/0.45NS 1000ML 1,000 ML IV SCH (13:45)
[2016-12-17] MEDS ORDERED: ACETAMINOPHEN TAB 650MG DOSE (2X325MG) PO PRN (13:45)
[2016-12-17] MEDS ORDERED: LR 1,000 ML IV SCH (13:45)
[2016-12-17] MEDS ORDERED: ONDANSETRON 4MG/2ML VIAL (J2405) IV PRN ×2 (13:45)
[2016-12-17] MEDS ORDERED: fentaNYL 100 MCG/2 ML INJECTION (J3010) As Ordered ONE (14:14)
[2016-12-17] MEDS: fentaNYL 100 MCG/2 ML INJECTION (J3010) IV PRN ×2 (14:16→14:18)
--- NOTE | 2016-12-17 17:32 | IPN ---
DATE: 12/17/2016 SUBJECTIVE: The patient is seen and examined in the room today. Early in the morning, the patient was brought to the operating room (OR) for her procedure by Dr. Fernandes. The patient was seen and examined after the procedure. Per patient, before the surgery, the patient had a pain in the part of her left lower extremity in a band-like fashion. After the procedure, the patient still had complaints about the pain, but the pain is more localized to the right lateral hip. The patient tolerated the procedure well. No significant distress. OBJECTIVE: After the procedure, the patient had a temperature of 98.2, pulse is 93, respirations 14, blood pressure is 118/66, pulse oximetry is 99% with 2 liters nasal cannula. GENERAL: No signs of acute distress. Alert and oriented times three. HEENT: Normocephalic, atraumatic. Extraocular motor grossly intact. CARDIOVASCULAR: Distant heart sounds. Positive S1, S2, regular rate. LUNGS: Clear to auscultation bilaterally. ABDOMEN: Soft, nontender, nondistended. Morbidly obese. Bowel sounds present. EXTREMITIES: Covered with compression stockings and thromboembolism deterrent (CHRIS) sequentials. No significant extrema edema can be appreciated. Laboratory data before the procedure: WBC 5.2, hemoglobin 13.2, hematocrit 40.1, platelet count is 298. Sodium is 139, potassium 4, chloride 105, carbon dioxide 28, BUN 10, creatinine 0.64, GFR greater than 60, fasting glucose 99, calcium is 8.7, magnesium is 2.2. PT is 14.1, INR is 1.08. ASSESSMENT AND PLAN: 1. Worsening low back pain with right lower extremity weakness and pain secondary to lumbar radiculopathy and spondylosis. The patient had right-sided L4-[address] Fernandes on 12/17/2016. We will defer the post-surgical care to the surgical team. 2. Hypertension. The patient's blood pressure is in a satisfactory range. At home, the patient is taking hydrochlorothiazide, which is on hold at this moment. We will restart the medication if needed. 3. Depression. The patient was taking fluoxetine 40 mg by mouth daily. 4. Deep vein thrombosis (DVT) prophylaxis. Will defer the anticoagulation to the primary surgical team. The patient currently has thromboembolism deterrent (CHRIS), sequential compression device.
[2016-12-17] MEDS: FLUoxetine 20 MG CAP PO SCH (17:51)
[2016-12-17] MEDS: NORCO, ANEXSIA 5/325MG TABLET (HYDROcodone/ACETAMINOPHEN) PO PRN ×2 (17:51→23:54)
[2016-12-17] MEDS ORDERED: CLINDAMYCIN 600 MG in APPROPRIATE DILUENT 1 EA IV ONE (21:00)
[2016-12-18 02:00] VITALS: BP 123/73
[2016-12-18] MEDS: NORCO, ANEXSIA 5/325MG TABLET (HYDROcodone/ACETAMINOPHEN) PO PRN ×2 (05:47→11:00)
[2016-12-18 06:00] VITALS: BP 134/82
[2016-12-18 07:07] LABS: MEAN CORPUSCULAR HGB CONC 33.5 g/dl (32.0-36.5); MEAN CORPUSCULAR VOLUME 95.4 fl (80.0-96.0); RED CELL DISTRIBUTION WIDTH 13.2 % (11.5-14.5)
[2016-12-18 07:15] LABS: ANION GAP 7 MEQ/L (8-16); BLOOD UREA NITROGEN 8 MG/DL (7-18); CALCIUM LEVEL 8.5 MG/DL (8.5-10.1); CARBON DIOXIDE LEVEL 28 MEQ/L (21-32); CHLORIDE LEVEL 104 MEQ/L (98-107); CREATININE FOR GFR 0.59 MG/DL (0.55-1.02); GLOMERULAR FILTRATION RATE > 60.0 (>51); GLUCOSE, FASTING 96 MG/DL (70-105); MAGNESIUM LEVEL 2.1 MG/DL (1.8-2.4); POTASSIUM SERUM 4.1 MEQ/L (3.5-5.1); SODIUM LEVEL 139 MEQ/L (136-145)
[2016-12-18] MEDS: FLUoxetine 20 MG CAP PO SCH (08:56)
[2016-12-18 10:00] VITALS: BP 132/70
--- NOTE | 2016-12-18 16:17 | RO ---
DATE OF PROCEDURE: 12/17/2016 PREOPERATIVE DIAGNOSES: Lumbar spondylosis with radiculopathy, neurogenic claudication, facet arthritis, spondylosis, morbid obesity. POSTOPERATIVE DIAGNOSES: Lumbar spondylosis with radiculopathy, neurogenic claudication, facet arthritis, spondylosis, morbid obesity with severe and extensive epidural scarring secondary to probably a ruptured pseudosynovial cyst and intraforaminal disc. PROCEDURE: SURGEON: Sharif Fernandes MD PAPER CONTROL CLERK: Macarena Gutierrez PA-C ANESTHESIA: General. FINDINGS: Please see the recent hospital record and my office notes for detailed preoperative evaluation and discussions. Patient had severe and relentless low back and right L4-L5 pain, both in radicular and neurogenic fashion. Patient failed conservative and less aggressive measures, including treatment at the pain clinic. Patient was aware of all options, risk, scope, expected outcome, sequelae, and complications of the proposed salvage procedure. She understood no guarantees of any kind could be given. She understood the risk of surgery includes, but is not limited to, , coma, paralysis, spinal fluid leakage, persistence or worsening of symptoms and/or deficits, failure of surgery and/or instrumentation if used, need for multiple surgeries, loss of vital bodily functions, permanent dependency on life support measures, pulmonary embolism (PE), myocardial infarction (MA), deep venous thrombosis (DVT), infection, bleeding, and/or any catastrophic sequelae. Patient once again stated that there is no way she can live with this pain and is willing to take any or all risk for any possible benefit. She understands she is an extremely high risk and hazardous candidate for surgery, and she understood her guarded prognosis based on her clinical and radiological findings, comorbidities, particularly morbid obesity. Once again, at her request, the patient was taken to the operating room and a preoperative conference was held with her sister. DESCRIPTION OF PROCEDURE: Once in the operating room, general endotracheal anesthesia was given. Patient was then positioned prone on a translucent Shubham frame and a fluoroscopic table with some difficulty on account of her morbid obesity. After adequate prep and drape, a skin incision was given in the midline at the expected location of L4-L5 interspace as all surface anatomical landmarks were obscured from her morbid obesity. Perioperative x-rays were also done to confirm the L4-L5 interspace once the incision was made and deepened down to the fascia. Cut edges of the blood vessels were coagulated with bipolar cautery and a PlasmaBlade. Lumbodorsal fascia was opened on the right side of the midline. Paraspinal muscles were from midline structures. Sacrum was visualized, thus L4-L5 interspace was identified, though perioperative x-rays were also done to confirm the location of this interspace. There was marked hypertrophy of the exposed facets. Posterolateral aspect of these facets were coagulated with bipolar cautery at L3-L4, L4-L5, and L5-S1 in the hope of achieving partial facet rhizotomies. Attention was now paid at L4-L5. Very generous fannie-semi laminectomy was performed. Hypertrophic ligamentum flavum was removed, though on the right lateral recess, it was densely adherent to the dura. It appeared there was a pseudosynovial cyst, which had ruptured and caused severe epidural scarring. Most of the scar tissue was removed from the posterolateral aspect of the dura and the nerve root. There appeared to be small free fragments in the foramina, which were also densely adherent. The decompression was carried out superiorly and laterally in between the two pedicles to make more room for the exiting L4 nerve root. Inferiorly or caudally, decompression was carried out until the origin of the S1 nerve root. There was hard and firm bulging disc, which was left in situ. She also has a slight degree of spondylolisthesis on account of the degenerative changes. She understood it would be addressed at a later stage if needed. At this time, blood loss was negligible, about 75 mL or so, and the wound was closed in anatomic layers. Patient tolerated the procedure satisfactorily and was transferred out of the room in stable condition. Operative findings were discussed with the family. Patient and family had followup instructions.
--- NOTE | 2016-12-18 20:09 | DS.PDOC ---
Discharge Summary General Date of Admission Dec 13, 2016 at 13:28 Date of Discharge Dec 18, 2016 at 12:30 Attending Physician: ANSHUL RAINES MD Specialist/Consultants [facility] Neurosurgery Pain management Discharge Summary PROCEDURES PERFORMED DURING STAY: Right L4-5 decompression ADMITTING DIAGNOSES: 1. Intractable back pain 2. Hypertension 3. Depression DISCHARGE DIAGNOSES: 1. Intractable back pain COMPLICATIONS/CHIEF COMPLAINT: Intractable Low Back Pain. HISTORY OF PRESENT ILLNESS: Ms. Garcia is a 56-year-old female who presented to [facility] with worsening of her back pain since September 2016. The pain has progressed so much that she is having difficulty walking and unable to care for herself. She lives alone. She is a . Denied trauma, fevers, chills, recent injury. Is morbidly obese. Has received cortisone injections with no improvement. Likely being optimized for surgery. States that she has worsening pain radiating down her right thigh with numbness and tingling. No bowel or urinary incontinence. No nausea or vomiting. States that the numbness is chronically on her lower extremity. No involvement in the groin or peritoneal area. Neurosurgery was contacted and their recommendation was for patient to follow-up with pain management and that surgery carries a considerable risk with uncertain outcome or improvement. Patient denied chest pain, pressure, discomfort, shortness of breath. Patient was subsequently admitted for further medical management. HOSPITAL COURSE: Surgery and pain management was consulted on patient's case. Pain management had suggested possibly entertaining the thought of providing relief with cortisone injections. Patient stated that prior injections have provided no relief for intractable back pain and that she would like to consider surgery as an option. Neurosurgery discussed risks and benefits with the patient and reported to the patient that there is a 1 and 3 risk of the surgery providing no relief to patient's intractable back pain as well as patient being a high surgical risk candidate. Per neurosurgery's note patient understood the risks and benefits and agreed to continue with the surgical option. Cardiology was consulted to provide medical optimization from a cardiac standpoint. Patient was medically cleared for surgery. Decompressive laminectomy was performed by neurosurgery. After surgery patient returned to her hospital room and was ambulating by the end of the evening. Patient's hospital course was uneventful. DISCHARGE MEDICATIONS: Please see below. ALLERGIES: Please see below. PHYSICAL EXAMINATION ON DISCHARGE: VITAL SIGNS: Please see below. GENERAL: Pleasant female resting comfortably in bed on her left side on evaluation this morning, appears stated age, appears in no apparent distress HEENT: Atraumatic, normocephalic, PERRL, EOMI, oral mucosa appears pink and moist, nasal septum appears midline NECK: Supple, trachea midline, no lymphadenopathy appreciated CARDIOVASCULAR EXAMINATION: Regular rate and rhythm, normal S1 and S2, no murmurs, rubs, clicks appreciated RESPIRATORY EXAMINATION: Clear to auscultation bilaterally, appropriate inspiratory and expiratory airway excursion, no wheeze, crackles, rhonchi ABDOMINAL EXAMINATION: Soft, nontender, nondistended, diminished bowel sounds EXTREMITIES: 5/5 muscle strength in lower extremities bilaterally, peripheral pulses appreciated bilaterally in upper and lower extremities, skin warm and dry to the touch, no pain to palpation SKIN: Warm, dry to the touch, no visible lesions noted NEUROLOGICAL EXAMINATION: Cranial nerves II through XII appear grossly intact, moving all 4 extremities appropriately PSYCHIATRIC EXAMINATION: Mood and affect appear appropriate LABORATORY DATA: Please see below. IMAGING: MRI of the lumbar spine without contrast IMPRESSION: 1. Central canal stenosis, mild to moderate L4-L5 secondary to disc bulge, ligamentous and facet hypertrophy, grade 1 spondylolisthesis. This causes nerve root compression bilaterally for the L4 roots. The small intra-foraminal disc extrusion on the right side is again seen but not as well depicted due to technical factors. 2. Epidural lipomatosis at L2-3, L3-4 and L5-S1. It causes some mild thecal sac compression without significant stenosis. Foramina at these other levels are unremarkable. The discogenic endplate changes at L2-3 are unchanged. Stable exam. Chest x-ray FINDINGS: There is a dextroconvex of rotoscoliotic to curve in the thoracic spine. The lungs are well inflated and clear. The pleural angles are sharp. Heart size is normal. There are degenerative changes as well in the thoracic spine and in the before meals joints. IMPRESSION: Dextroconvex thoracic rotoscoliosis curve. Otherwise no active disease. Duplex of bilateral lower extremities FINDINGS: The deep veins are anechoic and fully compressible from the groin to the popliteal fossa on the right and left lower extremity. Color flow imaging is homogenous. Spectral Doppler interrogation demonstrates intact respiratory variation inflow and normal manual augmentation flow. There is no evidence of deep vein thrombosis. There are normal-appearing lymph nodes in each groin which appear fat replaced. The largest of these on the right measures 3.4 x 1.0 x 1.3 cm. On the left largest node is 1.3 x 0.7 x 0.9 cm. IMPRESSION: Negative bilateral lower extremity duplex venous ultrasound. No evidence of deep vein thrombosis. Lumbosacral spine, partial Single portable lateral radiograph is obtained. Hematocrit is present overlying the neural at the L4-L5 level. PROGNOSIS: Stable ACTIVITY: Walk with walker DIET: No sodium diet DISCHARGE PLAN: Continue her medications as needed for chronic medical conditions; discontinue taking Soma and Dilaudid DISPOSITION: 01 Home, Self-Care. DISCHARGE INSTRUCTIONS: 1. Follow-up with neurosurgery, pain management, primary care provider in one week 2. Walk with walker, fall precautions 3. Follow a no added salt diet ITEMS TO FOLLOWUP ON ON OUTPATIENT: 1. Appointment with Miri Lopez on 12/25/2016 at 9 AM 2. Appointment with Dr. Fernandes on 01/01/2017 at 9 AM 3. Appointment with Haley Mario in 2 weeks DISCHARGE CONDITION: Stable for discharge TIME SPENT ON DISCHARGE: Greater than 60 minutes. Vital Signs/I&Os Vital Signs Date Time Temp Pulse Resp B/P Pulse Ox O2 Delivery O2 Flow Rate FiO2 12/18/16 11:30 18 Room Air 12/18/16 10:00 98.8 72 132/70 97 12/17/16 18:00 2.0 I&O- Last 24 Hours up to 6 AM 12/18/16 06:00 Intake Total 1035 ml Output Total 2027 ml Balance -992 ml Laboratory Data Labs 24H Laboratory Tests 2 12/18/16 06:23: Anion Gap 7L, Blood Urea Nitrogen 8, Creatinine 0.59, Sodium Level 139, Potassium Level 4.1, Chloride Level 104, Carbon Dioxide Level 28, Calcium Level 8.5, Glomerular Filtration Rate > 60.0, Magnesium Level 2.1 CBC/BMP Laboratory Tests 12/18/16 06:23 Calcium Level 8.5, Red Blood Count 3.67 L, Mean Corpuscular Volume 95.4, Mean Corpuscular Hemoglobin 32.0, Mean Corpuscular Hemoglobin Concent 33.5, Red Cell Distribution Width 13.2 Discharge Medications Scheduled (Hair Skin and Nails Formu) 1 Tab Tab 1 TAB PO DAILY (Reported) (Celecoxib) 200 Mg Cap 200 MG PO DAILY (Reported) Calcium/Vitamin D (Calcium 500+D 500-200 mg-Unit) 1 Tab Tab 2 TAB PO DAILY ( Reported) Cholecalciferol (Vitamin D3) 5,000 Unit Tab 10,000 UNIT PO DAILY (Reported) Fluoxetine Hcl (Fluoxetine HCl) 40 Mg Cap 40 MG PO DAILY (Reported) Gabapentin (Neurontin) 300 Mg Cap 300 MG PO BID (Reported) Hydrochlorothiazide (Hydrochlorothiazide) 12.5 Mg Tab 12.5 MG PO DAILY ( Reported) Scheduled PRN (Claritin-D 24 Hour 10-240 mg) 1 Tab Tab 1 TAB PO DAILY PRN PRN ALLEGIES ( Reported) Acetaminophen (Acetaminophen ER) 650 Mg Tab 650 MG PO Q8H PRN PRN PAIN (Reported ) Allergies Coded Allergies: Penicillins (Unverified Allergy, Intermediate, HIVES, 12/03/16) Sulfa Antibiotics (Unverified Allergy, Intermediate, HIVES, 12/03/16) Tetracycline (Unverified Allergy, Intermediate, HIVES, 12/03/16) MIRI CHO Dec 18, 2016 17:11 ANSHUL RAINES MD Dec 19, 2016 10:44
== END 2016-12-18 12:30 | disposition home or self-care (01) | DRG 310 ==
LOC: EDBD 06:08 → M ED 07:05 → M ED INP 13:28 → M MS5PR 15:59
PROVIDERS: ADMIT Hospitalist; ATTEND General Practice
PROC: 0QN00ZZ Release Lumbar Vertebra, Open Approach (ICD-10-PCS; 2016-12-17)
PROC: 0SB20ZZ Excision of Lumbar Vertebral Disc, Open Approach (ICD-10-PCS; principal; 2016-12-17 08:30)
DX: M47.817 Spondylosis without myelopathy or radiculopathy, lumbosacral region (principal); E66.01 Morbid (severe) obesity due to excess calories; I10 Essential (primary) hypertension; Z88.0 Allergy status to penicillin; Z88.2 Allergy status to sulfonamides; Z88.8 Allergy status to other drugs, medicaments and biological substances; F32.9 Major depressive disorder, single episode, unspecified; Z79.899 Other long term (current) drug therapy

== ENCOUNTER → 2017-01-08 | Outpatient (CLI) | payer BC, OTHER ==
[~2017-01-08] MED LIST changes: +ACET650T2 PO; +CELE1CAP9 PO; +DILA4TAB PO; +NEUR300C PO; +SOMA250T PO
--- NOTE | 2017-01-09 01:02 | ECWPNPC ---
PATIENT NAME: JAYLAN JONES : 1960 GENDER: FEMALE VISIT DATE: 01/08/2017 DISCHARGE DATE: 01/08/17 1153 VISIT LOCKED DATE TIME: PHYSICIAN: ALISHA WILL RESOURCE: ALISHA WILL REASON FOR APPOINTMENT 1. BACK/LEG HISTORY OF PRESENT ILLNESS HISTORY OF PRESENT ILLNESS: HERE FOR F/U AND MANAGEMENT OF CHRONIC LBP /RIGHT LEG PAIN.HAD LUMBAR LAMINECTOMY W HARDWARE ON 12-17-16.PAIN IS MUCH IMPROVED.HAVING LESS INTENSE AND LESS FREQUENT LOW BACK AND RIGHT LEG SYMPTOMS.RATING PAIN VAS 4/10.NOT USING HYDROCODONE OR DILAUDID FOR PAIN SINCE SURGERY.TAKING GABAPENTIN 300MG /TYLENOL ARTHRITIS BID.DISCUSSED MEDICATION OPTIONS. PAIN THE PATIENT DESCRIBES THE PAIN... FALL RISK SCREENING: SCREENING :NO FALLS IN THE PAST YEAR CURRENT MEDICATIONS TAKING FLUOXETINE HCL 40 MG CAPSULE 1 CAPSULE IN THE MORNING ORALLY ONCE A DAY TAKING HYDROCHLOROTHIAZIDE 12.5 MG TABLET 1 TABLET ORALLY ONCE A DAY TAKING CLARITIN 10 MG TABLET 1 TABLET ORALLY ONCE A DAY TAKING VITAMIN D 1000 UNIT TABLET 1 TABLET ORALLY ONCE A DAY TAKING CALCIUM + D3 600-200 MG-UNIT TABLET ORALLY TAKING NORCO 10-325 MG TABLET 1 TABLET NEEDED ORALLY EVERY 6 HRS PRN MDD4 TAKING DILAUDID 4 MG TABLET 1 ORALLY EVERY 6 HRS MDD4 TAKING GABAPENTIN 300 MG CAPSULE 1 CAPSULE ORALLY BID NOT-TAKING CELEBREX 200 MG CAPSULE 1 CAPSULE ORALLY ONCE A DAY NOT-TAKING SOMA 350 MG TABLET 1 ORALLY BEFORE BEDTIME MDD1 NOT-TAKING GABAPENTIN 300 MG CAPSULE ORALLY BID MEDICATION LIST REVIEWED AND RECONCILED WITH THE PATIENT PAST MEDICAL HISTORY HYPERLIDEMIA ATOPIC DERMATITIS ALLERGIES PENICILLIN (FOR ALLERGIES USE ONLY) SULFA (FOR ALLERGY USE ONLY) SURGICAL HISTORY LAMINECTOMY 2016 C SECTION 1983/1988 SOCIAL HISTORY GENERAL: PAIN CLINIC PFS, CLERGY, PUBLIC HEALTH REFERRALS CLERGY REFERRAL NEEDED?NO WAS THE PROVIDER NOTIFIED OF ANY PERTINENT INFO?NO PFS REFERRAL NEEDED?NO PUBLIC HEALTH REFERRAL NEEDED?NO PATIENT: ____. HOSPITALIZATION/MAJOR DIAGNOSTIC PROCEDURE NO HOSPITALIZATION HISTORY. REVIEW OF SYSTEMS CONSTITUTIONAL: ANY CHANGE IN YOUR MEDICAL CONDITION? YES HAD A LAMINECTOMY/ &QUOT;DOING BETTER&QUOT; . RECENT ILLNESS DENIES . CHILLS NO . FEVER NO . WEIGHT LOSS DENIES . INFECTION: DO YOU HAVE NEW INFECTIONS? NO . DO YOU HAVE HISTORY OF MRSA? NO . MUSCULOSKELETAL: ANY NEW PATTERNS OF PAIN OR NUMBNESS? NO . GASTROENTEROLOGY: ANY NEW CHANGE IN BOWEL CONTROL? NO . GENITOURINARY: ANY NEW CHANGE IN BLADDER CONTROL? NO . IS THERE A CHANCE YOU COULD BE ? NO . HEMATOLOGY/LYMPH: DO YOU TAKE ANY BLOOD THINNERS? (FOR EXAMPLE- COUMADIN, PLAVIX, AGGRENOX, PLATEL, PRADAXA, OR XARELTO) NO . WHEN WAS YOUR LAST DOSE? DATE: TIME: . NEUROLOGY: HAVE YOU FALLEN IN THE PAST 6 MONTHS? NO . ANY NEW EXTREMITY NUMBNESS OR WEAKNESS? NO . CARDIOLOGY: DO YOU HAVE A PACEMAKER OR DEFIBRILLATOR? NO . CHEST PAIN DENIES . SHORTNESS OF BREATH DENIES . RESPIRATORY: HAVE YOU BEEN SICK IN THE PAST WEEK? NO . FEVER NO . FLU LIKE SYMPTOMS? NO . COUGH NO, DENIES . SHORTNESS OF BREATH DENIES . INTEGUMENTARY: DO YOU HAVE ANY RASHES OR OPEN SORES? NO . ALLERGIC/IMMUNO: ARE YOU ALLERGIC TO SHELLFISH OR IV DYE? NO . ANY NEW ALLERGIES? NO . PSYCHIATRIC: DO YOU HAVE THOUGHTS OF HURTING YOURSELF OR SOMEONE ELSE? NO . ARE YOU ABUSED, NEGLECTED, OR IN AN UNSAFE ENVIRONMENT? NO . ENDOCRINOLOGY: ARE YOU DIABETIC? NO . OTHER: DO YOU NEED ANY PRESCRIPTIONS? YES PT BROUGHT MEDICATIONS/MAY NEED SOME WASTED . IF YES, PLEASE LIST: ____ . ANY NEW PROBLEMS WITH YOUR MEDICATIONS? NO . WHEN DID YOU LAST EAT? ____ . WHEN DID YOU LAST DRINK? ____ . WHAT DID YOU LAST DRINK? ____ . NAME OF PERSON DRIVING YOU HOME? ____ . DO YOU HAVE ANY OTHER QUESTIONS OR CONCERNS NO . REVIEWED BY: PROVIDER: ALISHA COOPER . VITAL SIGNS WT 259.8 LBS, HT 65 IN, BMI 43.23 INDEX, BP 133/87 MM HG, HR 115 /MIN, RR 18 /MIN, TEMP 98.6 F, OXYGEN SAT % 93%, NA INITIALS SC11:15. EXAMINATION GENERAL EXAMINATION: LUNGS:LUNG SOUNDS ARE CLEAR. HEART:HEART RATE REGULAR. MUSCULOSKELETAL:*, MUSCLE STRENGTH TESTING 5/5 BLE.WELL HEALED SURGICAL SCAR L/S SPINE.. ASSESSMENTS PROTRUDED LUMBAR DISC - M51.26 (PRIMARY) TREATMENT PROTRUDED LUMBAR DISC STOP DILAUDID TABLET, 4 MG, 1, ORALLY, EVERY 6 HRS MDD4 REFILL GABAPENTIN CAPSULE, 300 MG, 1 CAPSULE, ORALLY, BID, 30 DAY(S), 60 CAPSULE, REFILLS 5 PROCEDURE CODES FA211 ESTABILISHED PATIENT [facility] CHARGE DISPOSITION & COMMUNICATION FOLLOW UP 6 WEEKS ELECTRONICALLY SIGNED BY ALLISON BROWN ON 01/08/2017 AT 12:24 PM EDT DISCLAIMER : THIS IS A VISIT SUMMARY EXTRACTED FROM THE [employer] CHART. IT IS NOT A COPY OF THE [employer] PROGRESS NOTE. CHARLEEN
== END ==
LOC: M PAIN 10:40
PROVIDERS: ATTEND Nurse Practitioner Family
DX: Z09 Encounter for follow-up examination after completed treatment for conditions other than malignant neoplasm (principal); G89.29 Other chronic pain; M51.26 Other intervertebral disc displacement, lumbar region; E78.5 Hyperlipidemia, unspecified; Z88.0 Allergy status to penicillin; Z88.2 Allergy status to sulfonamides; Z79.899 Other long term (current) drug therapy

== ENCOUNTER → 2017-02-19 | Outpatient (CLI) | payer BC, OTHER ==
--- NOTE | 2017-03-13 01:10 | ECWPNPC ---
PATIENT NAME: JAYLAN JONES : 1960 GENDER: FEMALE VISIT DATE: 02/19/2017 DISCHARGE DATE: 02/19/17 1017 VISIT LOCKED DATE TIME: PHYSICIAN: ALISHA WILL RESOURCE: ALISHA WILL REASON FOR APPOINTMENT 1. BACK/LEG HISTORY OF PRESENT ILLNESS HISTORY OF PRESENT ILLNESS: HERE FOR F/U AND MANAGEMENT OF CHRONIC LBP /RIGHT LEG PAIN.HAD LUMBAR LAMINECTOMY W HARDWARE ON 12-17-16.PAIN IS MUCH IMPROVED.HAVING LESS INTENSE AND LESS FREQUENT LOW BACK AND RIGHT LEG SYMPTOMS.RATING PAIN VAS 3/10.NOT USING HYDROCODONE OR DILAUDID FOR PAIN SINCE SURGERY.TAKING GABAPENTIN 300MG /TYLENOL ARTHRITIS BID.DISCUSSED MEDICATION OPTIONS. PAIN THE PATIENT DESCRIBES THE PAIN... THE PATIENT DESCRIBES THE PAIN... FALL RISK SCREENING: SCREENING :NO FALLS IN THE PAST YEAR CURRENT MEDICATIONS TAKING FLUOXETINE HCL 40 MG CAPSULE 1 CAPSULE IN THE MORNING ORALLY ONCE A DAY TAKING HYDROCHLOROTHIAZIDE 12.5 MG TABLET 1 TABLET ORALLY ONCE A DAY TAKING CLARITIN 10 MG TABLET 1 TABLET ORALLY ONCE A DAY TAKING VITAMIN D 1000 UNIT TABLET 1 TABLET ORALLY ONCE A DAY TAKING CALCIUM + D3 600-200 MG-UNIT TABLET ORALLY TAKING NORCO 10-325 MG TABLET 1 TABLET NEEDED ORALLY EVERY 6 HRS PRN MDD4 TAKING GABAPENTIN 300 MG CAPSULE 1 CAPSULE ORALLY BID NOT-TAKING CELEBREX 200 MG CAPSULE 1 CAPSULE ORALLY ONCE A DAY NOT-TAKING SOMA 350 MG TABLET 1 ORALLY BEFORE BEDTIME MDD1 NOT-TAKING GABAPENTIN 300 MG CAPSULE ORALLY BID MEDICATION LIST REVIEWED AND RECONCILED WITH THE PATIENT PAST MEDICAL HISTORY HYPERLIDEMIA ATOPIC DERMATITIS ALLERGIES PENICILLIN (FOR ALLERGIES USE ONLY) SULFA (FOR ALLERGY USE ONLY) SURGICAL HISTORY LAMINECTOMY 2016 C SECTION 1983/1988 REVIEW OF SYSTEMS CONSTITUTIONAL: ANY CHANGE IN YOUR MEDICAL CONDITION? YES. PT REPORTS LEG AND ANKLE SWELLING SINCE RETURNING TO WORK AT [employer]. PT REPORTS 5-6 DAYS A WEEK 9-10 HOUR DAYS MOSTLY ON HER FEET. PT SLEEPS WITH LEGS ELEVATED, IMPROVES SLIGHTLY. ANKLE EDEMA IS NOTED FOR PITTING. . CHILLS NO . FEVER NO . INFECTION: DO YOU HAVE NEW INFECTIONS? NO . DO YOU HAVE HISTORY OF MRSA? NO . MUSCULOSKELETAL: ANY NEW PATTERNS OF PAIN OR NUMBNESS? YES. PT REPORTS RIGHT LEG PAIN SINCE STARTING WORK 02/11/17. . GASTROENTEROLOGY: ANY NEW CHANGE IN BOWEL CONTROL? NO . GENITOURINARY: ANY NEW CHANGE IN BLADDER CONTROL? NO . IS THERE A CHANCE YOU COULD BE ? NO . HEMATOLOGY/LYMPH: DO YOU TAKE ANY BLOOD THINNERS? (FOR EXAMPLE- COUMADIN, PLAVIX, AGGRENOX, PLATEL, PRADAXA, OR XARELTO) NO . WHEN WAS YOUR LAST DOSE? DATE: TIME: . NEUROLOGY: HAVE YOU FALLEN IN THE PAST 6 MONTHS? NO . ANY NEW EXTREMITY NUMBNESS OR WEAKNESS? NO . CARDIOLOGY: DO YOU HAVE A PACEMAKER OR DEFIBRILLATOR? NO . RESPIRATORY: HAVE YOU BEEN SICK IN THE PAST WEEK? NO . FEVER NO . FLU LIKE SYMPTOMS? NO . COUGH NO . INTEGUMENTARY: DO YOU HAVE ANY RASHES OR OPEN SORES? NO . ALLERGIC/IMMUNO: ARE YOU ALLERGIC TO SHELLFISH OR IV DYE? NO . ANY NEW ALLERGIES? NO . PSYCHIATRIC: DO YOU HAVE THOUGHTS OF HURTING YOURSELF OR SOMEONE ELSE? NO . ARE YOU ABUSED, NEGLECTED, OR IN AN UNSAFE ENVIRONMENT? NO . ENDOCRINOLOGY: ARE YOU DIABETIC? NO . OTHER: DO YOU NEED ANY PRESCRIPTIONS? NO . IF YES, PLEASE LIST: ____ . ANY NEW PROBLEMS WITH YOUR MEDICATIONS? NO . WHEN DID YOU LAST EAT? ____ . WHEN DID YOU LAST DRINK? ____ . WHAT DID YOU LAST DRINK? ____ . NAME OF PERSON DRIVING YOU HOME? ____ . DO YOU HAVE ANY OTHER QUESTIONS OR CONCERNS NO . REVIEWED BY: PROVIDER: ALISHA COOPER . VITAL SIGNS WT 259.0 LBS, HT 65 IN, BMI 43.10 INDEX, BP 131/76 MM HG, HR 66 /MIN, RR 16 /MIN, TEMP 96.1 F, OXYGEN SAT % 98%, SAFE IN ENV? (Y/N) Y, NA INITIALS TL 0949, REVIEWED BY: EM. EXAMINATION GENERAL EXAMINATION: LUNGS:LUNG SOUNDS ARE CLEAR. HEART:HEART RATE REGULAR. MUSCULOSKELETAL:*, MUSCLE STRENGTH TESTING 5/5 BLE.WELL HEALED SURGICAL SCAR L/S SPINE.. ASSESSMENTS PROTRUDED LUMBAR DISC - M51.26 (PRIMARY) TREATMENT PROTRUDED LUMBAR DISC DECREASE GABAPENTIN CAPSULE, 100 MG, 1-2, ORALLY, BID, 30 DAY(S), 60, REFILLS 1 PROCEDURE CODES FA211 ESTABILISHED PATIENT [facility] CHARGE DISPOSITION & COMMUNICATION FOLLOW UP 2 MONTHS ELECTRONICALLY SIGNED BY ALLISON BROWN ON 03/12/2017 AT 08:07 AM EDT DISCLAIMER : THIS IS A VISIT SUMMARY EXTRACTED FROM THE [employer] CHART. IT IS NOT A COPY OF THE [employer] PROGRESS NOTE. CHARLEEN
== END ==
LOC: M PAIN 09:40
PROVIDERS: ATTEND Nurse Practitioner Family
DX: M51.26 Other intervertebral disc displacement, lumbar region (principal); M79.604 Pain in right leg; G89.29 Other chronic pain; Z79.891 Long term (current) use of opiate analgesic; Z79.899 Other long term (current) drug therapy; Z88.0 Allergy status to penicillin; Z88.2 Allergy status to sulfonamides

== ENCOUNTER → 2017-04-25 | Outpatient (CLI) | payer BC, OTHER ==
[~2017-04-25] MED LIST changes: -ACET650T2 PO; +ACET650T3 PO; -CLAR10TA13 PO; +CLAR1TAB13 PO; -DILA4TAB PO; +DILA4TAB13 PO
--- NOTE | 2017-04-29 01:25 | ECWPNPC ---
PATIENT NAME: JAYLAN JONES : 1960 GENDER: FEMALE VISIT DATE: 04/25/2017 DISCHARGE DATE: 04/25/17 0956 VISIT LOCKED DATE TIME: PHYSICIAN: ALISHA WILL RESOURCE: ALISHA WILL REASON FOR APPOINTMENT 1. BACK/LEG HISTORY OF PRESENT ILLNESS HISTORY OF PRESENT ILLNESS: HERE FOR F/U AND MANAGEMENT OF CHRONIC LBP /RIGHT LEG PAIN.HAD LUMBAR LAMINECTOMY W HARDWARE ON 12-17-16.PAIN IS MUCH IMPROVED.HAVING LESS INTENSE AND LESS FREQUENT LOW BACK AND RIGHT LEG SYMPTOMS.RATING PAIN VAS 2/10.NOT USING HYDROCODONE OR DILAUDID FOR PAIN SINCE SURGERY.TAKING GABAPENTIN 300MG DAILY NOW AND IS DOING FINE. USING TYLENOL ARTHRITIS BID PRN.DISCUSSED DECREASE AND DISCONTINUING GABAPENTIN. PAIN THE PATIENT DESCRIBES THE PAIN... THE PATIENT DESCRIBES THE PAIN... THE PATIENT DESCRIBES THE PAIN... FALL RISK SCREENING: SCREENING :NO FALLS IN THE PAST YEAR CURRENT MEDICATIONS TAKING FLUOXETINE HCL 40 MG CAPSULE 1 CAPSULE IN THE MORNING ORALLY ONCE A DAY TAKING CLARITIN 10 MG TABLET 1 TABLET ORALLY ONCE A DAY TAKING VITAMIN D 1000 UNIT TABLET 1 TABLET ORALLY ONCE A DAY TAKING CALCIUM + D3 600-200 MG-UNIT TABLET ORALLY TAKING GABAPENTIN 100 MG CAPSULE 1-2 ORALLY BID NOT-TAKING HYDROCHLOROTHIAZIDE 12.5 MG TABLET 1 TABLET ORALLY ONCE A DAY NOT-TAKING NORCO 10-325 MG TABLET 1 TABLET NEEDED ORALLY EVERY 6 HRS PRN MDD4 NOT-TAKING CELEBREX 200 MG CAPSULE 1 CAPSULE ORALLY ONCE A DAY NOT-TAKING SOMA 350 MG TABLET 1 ORALLY BEFORE BEDTIME MDD1 NOT-TAKING GABAPENTIN 300 MG CAPSULE ORALLY BID MEDICATION LIST REVIEWED AND RECONCILED WITH THE PATIENT PAST MEDICAL HISTORY HYPERLIDEMIA ATOPIC DERMATITIS ALLERGIES PENICILLIN (FOR ALLERGIES USE ONLY) SULFA (FOR ALLERGY USE ONLY) REVIEW OF SYSTEMS REVIEWED BY: 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 CONSTITUTIONAL: ANY CHANGE IN YOUR MEDICAL CONDITION? NO . CHILLS NO . FEVER NO . INFECTION: DO YOU HAVE NEW INFECTIONS? NO . DO YOU HAVE HISTORY OF MRSA? NO . MUSCULOSKELETAL: ANY NEW PATTERNS OF PAIN OR NUMBNESS? NO . GASTROENTEROLOGY: ANY NEW CHANGE IN BOWEL CONTROL? NO . GENITOURINARY: ANY NEW CHANGE IN BLADDER CONTROL? NO . IS THERE A CHANCE YOU COULD BE ? NO . HEMATOLOGY/LYMPH: DO YOU TAKE ANY BLOOD THINNERS? (FOR EXAMPLE- COUMADIN, PLAVIX, AGGRENOX, PLATEL, PRADAXA, OR XARELTO) NO . WHEN WAS YOUR LAST DOSE? DATE: TIME: . NEUROLOGY: HAVE YOU FALLEN IN THE PAST 6 MONTHS? NO . ANY NEW EXTREMITY NUMBNESS OR WEAKNESS? NO . CARDIOLOGY: DO YOU HAVE A PACEMAKER OR DEFIBRILLATOR? NO, PT STATES SHE HAS BEEN TAKEN OFF OF HCTZ AND PLACED ON LASIX, PT UNSURE OF DOSE, PT STATES HER LEG SWELLING HAS IMPROVED. . RESPIRATORY: HAVE YOU BEEN SICK IN THE PAST WEEK? NO . FEVER NO . FLU LIKE SYMPTOMS? NO . COUGH NO . INTEGUMENTARY: DO YOU HAVE ANY RASHES OR OPEN SORES? NO . ALLERGIC/IMMUNO: ARE YOU ALLERGIC TO SHELLFISH OR IV DYE? NO . ANY NEW ALLERGIES? NO . PSYCHIATRIC: DO YOU HAVE THOUGHTS OF HURTING YOURSELF OR SOMEONE ELSE? NO . ARE YOU ABUSED, NEGLECTED, OR IN AN UNSAFE ENVIRONMENT? NO . ENDOCRINOLOGY: ARE YOU DIABETIC? NO . OTHER: DO YOU NEED ANY PRESCRIPTIONS? NO . IF YES, PLEASE LIST: ____ . ANY NEW PROBLEMS WITH YOUR MEDICATIONS? NO . WHEN DID YOU LAST EAT? ____ . WHEN DID YOU LAST DRINK? ____ . WHAT DID YOU LAST DRINK? ____ . NAME OF PERSON DRIVING YOU HOME? ____ . DO YOU HAVE ANY OTHER QUESTIONS OR CONCERNS NO . VITAL SIGNS WT 252.6 LBS, HT 65 IN, BMI 42.03 INDEX, BP 133/76 MM HG, HR 62 /MIN, RR 16 /MIN, TEMP 97.9 F, OXYGEN SAT % 96%, SAFE IN ENV? (Y/N) Y, NA INITIALS TL 0938, REVIEWED BY: EM. EXAMINATION GENERAL EXAMINATION: LUNGS:LUNG SOUNDS ARE CLEAR. HEART:HEART RATE REGULAR. MUSCULOSKELETAL:*, MUSCLE STRENGTH TESTING 5/5 BLE.WELL HEALED SURGICAL SCAR L/S SPINE.. ASSESSMENTS PROTRUDED LUMBAR DISC - M51.26 (PRIMARY) TREATMENT PROTRUDED LUMBAR DISC STOP GABAPENTIN CAPSULE, 100 MG, 1-2, ORALLY, BID PROCEDURE CODES FA211 ESTABILISHED PATIENT [facility] CHARGE DISPOSITION & COMMUNICATION FOLLOW UP 3 MONTHS ELECTRONICALLY SIGNED BY ALLISON BROWN ON 04/25/2017 AT 10:23 AM EDT DISCLAIMER : THIS IS A VISIT SUMMARY EXTRACTED FROM THE [email or web address] CHART. IT IS NOT A COPY OF THE [employer] PROGRESS NOTE. MTDD
== END ==
LOC: M PAIN 09:00
PROVIDERS: ATTEND Nurse Practitioner Family
DX: M51.26 Other intervertebral disc displacement, lumbar region (principal); G89.29 Other chronic pain; Z79.899 Other long term (current) drug therapy; Z88.0 Allergy status to penicillin; Z88.3 Allergy status to other anti-infective agents

== ENCOUNTER → 2022-02-08 | Outpatient (REF) | payer BC, OTHER ==
[~2022-02-08] MED LIST changes: +GABA-1171 PO; -GABA-279 PO; -PEG1POW PO; +POLY17PO18 PO
== END ==
LOC: M SFHCDERM 13:48
PROVIDERS: ATTEND Physician Assistant
DX: L85.8 Other specified epidermal thickening (principal)